=== PATIENT | female | born 1975 | race American Indian/Alaskan Native ===

== ENCOUNTER 2018-10-08 13:46 | Inpatient (IN) | payer MEDICARE ==
[2018-10-08] MEDS ORDERED: CARDIZEM IV ONE (14:07)
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
[2018-10-08] MEDS: CARDIZEM/D5W 100MG/100ML 100 MG/100 ML BAG IV SCH ×2 (14:30→21:38)
[2018-10-08 14:32] LABS: Basophils # (Auto) 0.1 K/mm3 (0.0-0.1); Basophils % (Auto) 1.4 % (0.0-1.8); Eosinophils # (Auto) 0.1 K/mm3 (0.0-0.4); Hematocrit 40.7 % (30.3-42.9); Hemoglobin 13.9 gm/dl (10.1-14.3); Lymphocytes # (Auto) 1.5 K/mm3 (1.2-5.4); Lymphocytes % (Auto) 22.9 % (13.4-35.0); Mean Corpuscular HGB Conc 34 % (30-34); Mean Corpuscular Volume 79 fl (79-97); Monocytes # (Auto) 0.5 K/mm3 (0.0-0.8); Monocytes % (Auto) 7.5 % (0.0-7.3); Platelet Count 300 K/mm3 (140-440); Red Blood Count 5.13 M/mm3 (3.65-5.03); Red Cell Distribution Width 13.8 % (13.2-15.2)
[2018-10-08 14:42] LABS: INR 1.03 (0.87-1.13)
[2018-10-08 14:43] LABS: Partial Thromboplastin Time 28.1 Sec. (24.2-36.6)
[2018-10-08 14:49] LABS: Creatine Kinase MB 2.9 ng/mL (0.0-4.0)
[2018-10-08 14:51] LABS: Alanine Aminotransferase 50 units/L (7-56); Albumin 4.4 g/dL (3.9-5); BUN/Creatinine Ratio 15; Blood Urea Nitrogen 6 mg/dL (7-17); Calcium 9.9 mg/dL (8.4-10.2); Hemolysis Index 20
[2018-10-08 14:55] LABS: Bilirubin,Direct < 0.2 mg/dL (0-0.2)
[2018-10-08] MEDS ORDERED: DECADRON IV ONE (15:14)
[2018-10-08] MEDS ORDERED: INDERAL IV ONE ×2 (15:14→16:00)
[2018-10-08 15:31] LABS: HCG Qualitative,Urine Negative (Negative)
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
[2018-10-08 15:34] LABS: Bilirubin,Urine NEG (Negative); Blood,Urine MOD (Negative); Color,Urine Straw (Yellow); Protein,Urine <15 mg/dL mg/dL (Negative); Urobilinogen,Urine < 2.0 mg/dL (<2.0); WBC,Urine < 1.0 /HPF (0.0-6.0)
[2018-10-08] MEDS: ASPIRIN PO SCH (15:45)
[2018-10-08] MEDS: PROPYLTHIOURACIL PO SCH (15:45)
[2018-10-08 15:50] LABS: Amphetamine Screen,Urine PRESUMPTIVE NEGATIVE; Benzodiazepines Screen,Urine PRESUMPTIVE NEGATIVE; Cannabinoid Screen,Urine PRESUMPTIVE NEGATIVE; Cocaine Screen,Urine PRESUMPTIVE NEGATIVE; Methadone Screen,Urine PRESUMPTIVE NEGATIVE; Opiate Screen,Urine PRESUMPTIVE NEGATIVE
[2018-10-08 16:12] LABS: Free T4 (Free Thyroxine) 5.16 ng/dL (0.76-1.46)
--- NOTE | 2018-10-08 16:37 | XRay Report ---
CHEST 1 VIEW INDICATION / CLINICAL INFORMATION: Chest Pain. COMPARISON: None available. FINDINGS: SUPPORT DEVICES: None. HEART / MEDIASTINUM: Heart is upper normal size for AP portable technique. LUNGS / PLEURA: No significant pulmonary or pleural abnormality. No pneumothorax. ADDITIONAL FINDINGS: No significant additional findings. IMPRESSION: 1. No acute findings. Signer Name: Amadeo Brooks MD Signed: 10/08/2018 4:32 PM Workstation Name: [id number]
--- NOTE | 2018-10-08 17:10 | Cat Scan Report ---
CTA CHEST WITH CONTRAST INDICATION / CLINICAL INFORMATION: MAIN: center/left chest pain. for days dyspnea. TECHNIQUE: Axial CT images were obtained through the chest after injection of IV contrast. 3 plane MIP and/or 3D reconstructions were produced. All CT scans at this location are performed using CT dose reduction f or ALARA by means of automated exposure control. COMPARISON: None available. FINDINGS: PULMONARY ARTERIES: No pulmonary emboli. THORACIC AORTA: No significant abnormality. HEART: Upper normal size. CORONARY ARTERIES: No significant calcification. MEDIASTINUM / RALPH: Mild soft tissue density in the anterior mediastinum represents residual thymus. PLEURA: No pleural effusion. No pneumothorax. LUNGS: No acute air space or interstitial disease. ADDITIONAL FINDINGS: None. UPPER ABDOMEN: Diffuse chunky calcifications throughout the pancreas characteristic of chronic calcif ic pancreatitis. Liver is diffusely hypodense characteristic of hepatic steatosis. SKELETAL STRUCTURES: No significant osseous abnormality. IMPRESSION: 1. No CT evidence for pulmonary embolism. 2. No acute pulmonary or pleural findings. 3. Hepatic steatosis and chronic calcific pancreatitis. Signer Name: Amadeo Brooks MD Signed: 10/08/2018 5:06 PM Workstation Name: [id number]
[2018-10-08] MEDS ORDERED: SODIUM CHLORIDE FLUSH SYRINGE 10 ML IV PRN (18:30)
[2018-10-08] MEDS ORDERED: ATIVAN ONE (18:32)
[2018-10-08] MEDS: LUGOL'S SOLUTION 5% PO SCH (22:48)
[2018-10-08] MEDS: SODIUM CHLORIDE FLUSH SYRINGE 10 ML IV SCH (22:49)
[2018-10-08] MEDS: TAPAZOLE PO SCH (22:49)
[2018-10-09] MEDS: PROPYLTHIOURACIL PO SCH ×2 (01:05→12:01)
[2018-10-09] MEDS: XANAX PO PRN ×2 (01:05→10:03)
[2018-10-09] MEDS: CARDIZEM/D5W 100MG/100ML 100 MG/100 ML BAG IV SCH (05:14)
[2018-10-09 05:30] LABS: Basophils % (Auto) 0.8 % (0.0-1.8); Hematocrit 38.7 % (30.3-42.9); Lymphocytes # (Auto) 0.5 K/mm3 (1.2-5.4); Lymphocytes % (Auto) 11.2 % (13.4-35.0); Mean Corpuscular HGB Conc 34 % (30-34); Mean Corpuscular Volume 81 fl (79-97); Monocytes # (Auto) 0.2 K/mm3 (0.0-0.8); Monocytes % (Auto) 4.9 % (0.0-7.3); Platelet Count 240 K/mm3 (140-440); Red Blood Count 4.79 M/mm3 (3.65-5.03); Red Cell Distribution Width 14.2 % (13.2-15.2)
[2018-10-09 05:59] LABS: Alanine Aminotransferase 46 units/L (7-56); Albumin 4.2 g/dL (3.9-5); BUN/Creatinine Ratio 22; Blood Urea Nitrogen 11 mg/dL (7-17); Calcium 10.2 mg/dL (8.4-10.2); Hemolysis Index 7
[2018-10-09] MEDS: LUGOL'S SOLUTION 5% PO SCH ×3 (07:33→21:13)
[2018-10-09] MEDS: TAPAZOLE PO SCH ×3 (07:33→21:08)
[2018-10-09] MEDS: ASPIRIN PO SCH (09:32)
[2018-10-09] MEDS: VITAMIN B-1 PO SCH (09:32)
[2018-10-09] MEDS: FOLVITE PO SCH (09:33)
[2018-10-09] MEDS: THERAGRAN Tab PO SCH (09:33)
[2018-10-09] MEDS: SODIUM CHLORIDE FLUSH SYRINGE 10 ML IV SCH ×2 (09:38→21:09)
--- NOTE | 2018-10-09 10:27 | Consultation ---
History of Present Illness Consult date: 10/09/18 Consult reason: atrial fibrillation History of present illness: 4-1 year old female presenting with history of weight loss heat intolerance, palpitation, shortness of breath, and dyspnea on exertion. Patient was found in the emergency room to have new onset Atrial fibrillation with a rapid ventricular response as well as evidence of new onset thyrotoxicosis. 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) Social history: single, alcohol abuse Family history: no significant family history (Reviewed) Medications and Allergies Allergies Allergy/AdvReac Type Severity Reaction Status Date / Time No Known Allergies Allergy Unverified 10/08/18 18:49 Active Meds: Active Medications Alprazolam (Xanax) 0.25 mg PO Q8H PRN PRN Reason: Anxiety Last Admin: 10/09/18 10:03 Dose: 0.25 mg Documented by: Aspirin (Aspirin) 325 mg PO QDAY [facility] Last Admin: 10/09/18 09:32 Dose: 325 mg Documented by: Dabigatran (Pradaxa) 150 mg PO BID [facility]; Protocol Diltiazem HCl (Cardizem) 60 mg PO Q6HR [facility] Folic Acid (Folvite) 1 mg PO QDAY [facility] Last Admin: 10/09/18 09:33 Dose: 1 mg Documented by: Iodine/Potassium Iodide (Lugol's Solution 5%) 1 ml PO Q8HR [facility] Last Admin: 10/09/18 07:33 Dose: 1 ml Documented by: Lorazepam (Ativan) 2 mg IV Q1HR PRN PRN Reason: CIWA-Ar 8-15 Methimazole (Tapazole) 5 mg PO Q8HR [facility] Last Admin: 10/09/18 07:33 Dose: 5 mg Documented by: Multivitamins (Theragran Tab) 1 each PO QDAY [facility] Last Admin: 10/09/18 09:33 Dose: 1 each Documented by: Propylthiouracil (Propylthiouracil) 100 mg PO Q8H [facility] Last Admin: 10/09/18 01:05 Dose: 100 mg Documented by: Sodium Chloride (Sodium Chloride Flush Syringe 10 Ml) 10 ml IV BID [facility] Last Admin: 10/09/18 09:38 Dose: 10 ml Documented by: Sodium Chloride (Sodium Chloride Flush Syringe 10 Ml) 10 ml IV PRN PRN PRN Reason: LINE FLUSH Thiamine HCl (Vitamin B-1) 100 mg PO QDAY [facility] Last Admin: 10/09/18 09:32 Dose: 100 mg Documented by: Review of Systems All systems: negative Cardiovascular: palpitations, shortness of breath, dyspnea on exertion Psychiatric: anxiety Physical Examination Vital Signs Pulse BP 181 H 132/69 10/08/18 14:15 10/08/18 14:15 General appearance: no acute distress, well-nourished HEENT: Positive: PERRL, Mucus Membranes Moist Neck: Positive: neck supple, trachea midline Cardiac: Positive: irregularly irregular, S1/S2. Negative: Audible Murmur Lungs: Positive: clear to auscultation, Normal Breath Sounds Neuro: Positive: Grossly Intact Abdomen: Positive: Soft, Active Bowel Sounds. Negative: Tender, Distended Female genitourinary: deferred Skin: Positive: Clear Incision: Cardiac Cath Site Musculoskeletal: No Pain, Normal Range of Motion Extremities: Present: normal. Absent: edema Results 10/09/18 04:34 10/09/18 04:34 Cardiac Enzymes 10/08/18 10/09/18 Range/Units 14:20 04:34 AST 65 H 50 H (5-40) units/L CK-MB (CK-2) 2.9 (0.0-4.0) ng/mL Coagulation 10/08/18 Range/Units 14:20 PT 13.2 (12.2-14.9) Sec. INR 1.03 (0.87-1.13) APTT 28.1 (24.2-36.6) Sec. CBC 10/08/18 10/09/18 Range/Units 14:20 04:34 WBC 6.4 4.5 (4.5-11.0) K/mm3 RBC 5.13 H 4.79 (3.65-5.03) M/mm3 Hgb 13.9 13.0 (10.1-14.3) gm/dl Hct 40.7 38.7 (30.3-42.9) % Plt Count 300 240 (140-440) K/mm3 Lymph # 1.5 0.5 L (1.2-5.4) K/mm3 [place] # 0.5 0.2 (0.0-0.8) K/mm3 Eos # 0.1 0.0 (0.0-0.4) K/mm3 Baso # 0.1 0.0 (0.0-0.1) K/mm3 Comprehensive Metabolic Panel 10/08/18 10/09/18 Range/Units 14:20 04:34 Sodium 136 L 139 (137-145) mmol/L Potassium 3.5 L 3.9 (3.6-5.0) mmol/L Chloride 96.4 L 101.6 (98-107) mmol/L Carbon Dioxide 22 24 (22-30) mmol/L BUN 6 L 11 (7-17) mg/dL Creatinine 0.4 L 0.5 L (0.7-1.2) mg/dL Glucose 122 H 149 H (65-100) mg/dL Calcium 9.9 10.2 (8.4-10.2) mg/dL Direct Bilirubin < 0.2 (0-0.2) mg/dL AST 65 H 50 H (5-40) units/L ALT 50 46 (7-56) units/L Alkaline Phosphatase 124 113 (35-129) units/L Total Protein 8.2 7.6 (6.3-8.2) g/dL Albumin 4.4 4.2 (3.9-5) g/dL - EKG Interpretation EKG shows: atrial fibrillation EKG interpretations - Telemetry EKG Rhythm: Atrial Fibrillation Assessment and Plan 1. Thyrotoxicosis without thyroid storm 2. New onset atrial fibrillation with a rapid ventricular response 3. Anxiety disorder probably related to high hyper thyroidism Plan Patient is currently on intravenous Cardizem drip ventricular response to atrial fibrillation controlled we will switch this to oral Cardizem. Patient will be started on anticoagulation. Echocardiogram will be done to assess global and regional function of the left ventricle
[2018-10-09] MEDS: ATIVAN IV PRN ×3 (10:51→23:03)
[2018-10-09] MEDS: CARDIZEM PO SCH ×3 (10:54→22:42)
[2018-10-09] MEDS: PRADAXA PO SCH ×2 (11:38→21:08)
--- NOTE | 2018-10-09 11:51 | Progress Note ---
Assessment and Plan Assessment and plan: Hyperthyroidism. Thyroid function studies consistent with hyperthyroidism. Check urine test. Continue Tapazole. Check RAIU for confirmation. Thyrotoxicosis. As above. Atrial fibrillation with RVR. Etiology secondary to above. Continue Cardizem and propranolol per cardiology. Cardiology following. Follow-up echocardiogram. Anxiety disorder. Etiology probably secondary to above. Continue to treat underlying medical causes. History Interval history: 43 year old female presenting with history of weight loss heat intolerance, palpitation, shortness of breath, and dyspnea on exertion. Patient was found in the emergency room to have new onset Atrial fibrillation with a rapid ventricular response as well as evidence of new onset thyrotoxicosis. Hospitalist Physical - Constitutional Vitals: Temp Pulse Resp BP Pulse Ox 97.4 F L 132 H 17 138/78 99 10/09/18 07:57 10/09/18 10:54 10/09/18 10:50 10/09/18 10:54 10/09/18 10:50 General appearance: Present: no acute distress, well-nourished - EENT Eyes: Present: PERRL, EOM intact ENT: hearing intact, clear oral mucosa, dentition normal - Neck Neck: Present: supple, normal ROM - Respiratory Respiratory effort: normal Respiratory: bilateral: CTA - Cardiovascular Rhythm: regular Heart Sounds: Present: S1 & S2. Absent: gallop, rub - Extremities Extremities: no ischemia, No edema, Full ROM - Abdominal General gastrointestinal: soft, non-tender, non-distended, normal bowel sounds - Integumentary Integumentary: Present: clear, warm, dry - Neurologic Neurologic: CNII-XII intact, moves all extremities Results - Labs CBC & Chem 7: 10/09/18 04:34 10/09/18 04:34 Labs: Laboratory Last Values WBC 4.5 K/mm3 (4.5-11.0) 10/09/18 04:34 RBC 4.79 M/mm3 (3.65-5.03) 10/09/18 04:34 Hgb 13.0 gm/dl (10.1-14.3) 10/09/18 04:34 Hct 38.7 % (30.3-42.9) 10/09/18 04:34 MCV 81 fl (79-97) 10/09/18 04:34 MCH 27 pg (28-32) L 10/09/18 04:34 MCHC 34 % (30-34) 10/09/18 04:34 RDW 14.2 % (13.2-15.2) 10/09/18 04:34 Plt Count 240 K/mm3 (140-440) 10/09/18 04:34 Lymph % (Auto) 11.2 % (13.4-35.0) L 10/09/18 04:34 [place] % (Auto) 4.9 % (0.0-7.3) 10/09/18 04:34 Eos % (Auto) 0.0 % (0.0-4.3) 10/09/18 04:34 Baso % (Auto) 0.8 % (0.0-1.8) 10/09/18 04:34 Lymph # 0.5 K/mm3 (1.2-5.4) L 10/09/18 04:34 [place] # 0.2 K/mm3 (0.0-0.8) 10/09/18 04:34 Eos # 0.0 K/mm3 (0.0-0.4) 10/09/18 04:34 Baso # 0.0 K/mm3 (0.0-0.1) 10/09/18 04:34 Seg Neutrophils % 83.1 % (40.0-70.0) H 10/09/18 04:34 Seg Neutrophils # 3.7 K/mm3 (1.8-7.7) 10/09/18 04:34 PT 13.2 Sec. (12.2-14.9) 10/08/18 14:20 INR 1.03 (0.87-1.13) 10/08/18 14:20 APTT 28.1 Sec. (24.2-36.6) 10/08/18 14:20 1075.24 ng/mlDDU (0-234) H 10/08/18 14:20 Sodium 139 mmol/L (137-145) 10/09/18 04:34 Potassium 3.9 mmol/L (3.6-5.0) 10/09/18 04:34 Chloride 101.6 mmol/L (98-107) 10/09/18 04:34 Carbon Dioxide 24 mmol/L (22-30) 10/09/18 04:34 17 mmol/L 10/09/18 04:34 BUN 11 mg/dL (7-17) 10/09/18 04:34 0.5 mg/dL (0.7-1.2) L 10/09/18 04:34 Estimated GFR > 60 ml/min 10/09/18 04:34 22 % 10/09/18 04:34 Glucose 149 mg/dL (65-100) H 10/09/18 04:34 Calcium 10.2 mg/dL (8.4-10.2) 10/09/18 04:34 Magnesium 2.20 mg/dL (1.7-2.3) 10/08/18 15:30 0.60 mg/dL (0.1-1.2) 10/09/18 04:34 < 0.2 mg/dL (0-0.2) 10/08/18 14:20 AST 50 units/L (5-40) H 10/09/18 04:34 ALT 46 units/L (7-56) 10/09/18 04:34 113 units/L (35-129) 10/09/18 04:34 193 units/L (30-135) H 10/08/18 14:20 CK-MB (CK-2) 2.9 ng/mL (0.0-4.0) 10/08/18 14:20 CK-MB (CK-2) Rel Index 1.5 (0-4) 10/08/18 14:20 < 0.010 ng/mL (0.00-0.029) 10/08/18 19:35 NT-Pro-B Natriuret Pep 75.99 pg/mL (0-450) 10/08/18 14:20 7.6 g/dL (6.3-8.2) 10/09/18 04:34 4.2 g/dL (3.9-5) 10/09/18 04:34 1.2 % 10/09/18 04:34 TSH < 0.005 mlU/mL (0.270-4.200) L 10/08/18 15:30 Free T4 5.16 ng/dL (0.76-1.46) H 10/08/18 15:30 Straw (Yellow) 10/08/18 15:15 Clear (Clear) 10/08/18 15:15 6.0 (5.0-7.0) 10/08/18 15:15 Ur Specific [place] 1.003 (1.003-1.030) 10/08/18 15:15 <15 mg/dl mg/dL (Negative) 10/08/18 15:15 Neg mg/dL (Negative) 10/08/18 15:15 Neg mg/dL (Negative) 10/08/18 15:15 Mod (Negative) 10/08/18 15:15 Neg (Negative) 10/08/18 15:15 Ur Reducing Substances Not Reportable 10/08/18 15:15 Neg (Negative) 10/08/18 15:15 Not Reportable 10/08/18 15:15 < 2.0 mg/dL (<2.0) 10/08/18 15:15 Ur Leukocyte Esterase Neg (Negative) 10/08/18 15:15 < 1.0 /HPF (0.0-6.0) 10/08/18 15:15 3.0 /HPF (0.0-6.0) 10/08/18 15:15 U Epithel Cells (Auto) 1.0 /HPF (0-13.0) 10/08/18 15:15 Urine HCG, Qual Negative (Negative) 10/08/18 15:15 Presumptive negative 10/08/18 15:15 Presumptive negative 10/08/18 15:15 Ur Barbiturates Screen Presumptive negative 10/08/18 15:15 Ur Phencyclidine Scrn Presumptive negative 10/08/18 15:15 Ur Amphetamines Screen Presumptive negative 10/08/18 15:15 U Benzodiazepines Scrn Presumptive negative 10/08/18 15:15 [place] 0.4 mmol/L (0.0-1.2) 10/08/18 15:15 Presumptive negative 10/08/18 15:15 U Marijuana (THC) Screen Presumptive negative 10/08/18 15:15 Disclamer 10/08/18 15:15 Blood Type O POSITIVE 10/08/18 14:30 Antibody Screen Negative 10/08/18 14:30 Active Medications - Current Medications Current Medications: Generic Name Dose Route Start Last Admin Trade Name Freq PRN Reason Stop Dose Admin Alprazolam 0.25 mg 10/08/18 22:42 10/09/18 10:03 Xanax PO 0.25 mg Q8H PRN Administration Anxiety Aspirin 325 mg 10/08/18 16:00 10/09/18 09:32 Aspirin PO 325 mg QDAY ELVIRA Administration Dabigatran 150 mg 10/09/18 12:00 10/09/18 11:38 Pradaxa PO 150 mg BID ELVIRA Administration Protocol Diltiazem HCl 60 mg 10/09/18 11:00 10/09/18 10:54 Cardizem PO 60 mg Q6H ELVIRA Administration Folic Acid 1 mg 10/09/18 10:00 10/09/18 09:33 Folvite PO 1 mg QDAY ELVIRA Administration Iodine/Potassium Iodide 1 ml 10/08/18 22:00 10/09/18 07:33 Lugol's Solution 5% PO 1 ml Q8HR ELVIRA Administration Lorazepam 2 mg 10/09/18 06:37 10/09/18 10:51 Ativan IV 2 mg Q1HR PRN Administration CIWA-Ar 8-15 Methimazole 5 mg 10/08/18 22:00 10/09/18 07:33 Tapazole PO 5 mg Q8HR ELVIRA Administration Multivitamins 1 each 10/09/18 10:00 10/09/18 09:33 Theragran Tab PO 1 each QDAY ELVIRA Administration Propylthiouracil 100 mg 10/08/18 16:00 10/09/18 01:05 Propylthiouracil PO 100 mg Q8H ELVIRA Administration Sodium Chloride 10 ml 10/08/18 22:00 10/09/18 09:38 Sodium Chloride Flush Syringe 10 Ml IV 10 ml BID ELVIRA Administration Sodium Chloride 10 ml 10/08/18 18:30 Sodium Chloride Flush Syringe 10 Ml IV PRN PRN LINE FLUSH Thiamine HCl 100 mg 10/09/18 10:00 10/09/18 09:32 Vitamin B-1 PO 100 mg QDAY ELVIRA Administration
[2018-10-10] MEDS: CARDIZEM PO SCH ×4 (04:20→22:21)
[2018-10-10] MEDS: LUGOL'S SOLUTION 5% PO SCH ×3 (05:39→21:11)
[2018-10-10] MEDS: TAPAZOLE PO SCH ×3 (05:39→21:10)
[2018-10-10] MEDS: PRADAXA PO SCH ×2 (10:00→21:11)
[2018-10-10] MEDS: SODIUM CHLORIDE FLUSH SYRINGE 10 ML IV SCH ×2 (10:00→21:15)
[2018-10-10] MEDS: VITAMIN B-1 PO SCH (10:00)
[2018-10-10] MEDS: FOLVITE PO SCH (10:00)
[2018-10-10] MEDS: ASPIRIN PO SCH (10:00)
[2018-10-10] MEDS: THERAGRAN Tab PO SCH (10:00)
[2018-10-10] MEDS: ATIVAN IV PRN (10:01)
--- NOTE | 2018-10-10 11:33 | Consultation ---
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) Social history: single, alcohol abuse Family history: no significant family history (Reviewed) Medications and Allergies Allergies Allergy/AdvReac Type Severity Reaction Status Date / Time No Known Allergies Allergy Unverified 10/08/18 18:49 Home Medications Medication Instructions Recorded Confirmed Last Taken Type [place] 500 mg PO BID 10/09/18 10/09/18 10/06/18 History 500mg Plaquenil 200 mg PO BID 10/09/18 10/09/18 Unknown History Wellbutrin 75 mg PO BID 10/09/18 10/09/18 10/08/18 09:00 History traZODone 100 mg PO HS 10/09/18 10/09/18 Unknown History Active Meds: Active Medications Alprazolam (Xanax) 0.25 mg PO Q8H PRN PRN Reason: Anxiety Last Admin: 10/09/18 10:03 Dose: 0.25 mg Documented by: Aspirin (Aspirin) 325 mg PO QDAY [facility] Last Admin: 10/10/18 10:00 Dose: 325 mg Documented by: Dabigatran (Pradaxa) 150 mg PO BID [facility]; Protocol Last Admin: 10/10/18 10:00 Dose: 150 mg Documented by: Diltiazem HCl (Cardizem) 60 mg PO Q6H [facility] Last Admin: 10/10/18 10:05 Dose: 60 mg Documented by: Folic Acid (Folvite) 1 mg PO QDAY [facility] Last Admin: 10/10/18 10:00 Dose: 1 mg Documented by: Iodine/Potassium Iodide (Lugol's Solution 5%) 1 ml PO Q8HR [facility] Last Admin: 10/10/18 05:39 Dose: 1 ml Documented by: Lorazepam (Ativan) 2 mg IV Q1HR PRN PRN Reason: CIWA-Ar 8-15 Last Admin: 10/10/18 10:01 Dose: 2 mg Documented by: Methimazole (Tapazole) 5 mg PO Q8HR [facility] Last Admin: 10/10/18 05:39 Dose: 5 mg Documented by: Multivitamins (Theragran Tab) 1 each PO QDAY [facility] Last Admin: 10/10/18 10:00 Dose: 1 each Documented by: Sodium Chloride (Sodium Chloride Flush Syringe 10 Ml) 10 ml IV BID [facility] Last Admin: 10/10/18 10:00 Dose: 10 ml Documented by: Sodium Chloride (Sodium Chloride Flush Syringe 10 Ml) 10 ml IV PRN PRN PRN Reason: LINE FLUSH Thiamine HCl (Vitamin B-1) 100 mg PO QDAY [facility] Last Admin: 10/10/18 10:00 Dose: 100 mg Documented by: Physical Examination Vital signs: Vital Signs Pulse BP 181 H 132/69 10/08/18 14:15 10/08/18 14:15 Results - Laboratory Findings CBC and BMP: 10/09/18 04:34 10/09/18 04:34 PT/INR, D-dimer PT 13.2 Sec. (12.2-14.9) 10/08/18 14:20 INR 1.03 (0.87-1.13) 10/08/18 14:20 1075.24 ng/mlDDU (0-234) H 10/08/18 14:20 Abnormal lab findings: Abnormal Labs 10/08/18 10/08/18 10/08/18 14:20 14:20 14:20 RBC 5.13 H MCH 27 L Lymph % (Auto) [place] % (Auto) 7.5 H Lymph # Seg Neutrophils % D-Dimer 1075.24 H Sodium 136 L Potassium 3.5 L Chloride 96.4 L BUN 6 L Creatinine 0.4 L Glucose 122 H AST 65 H Total Creatine Kinase 193 H TSH Free T4 10/08/18 10/08/18 10/09/18 14:20 15:30 04:34 RBC MCH 27 L Lymph % (Auto) 11.2 L [place] % (Auto) Lymph # 0.5 L Seg Neutrophils % 83.1 H D-Dimer Sodium Potassium Chloride BUN Creatinine Glucose AST Total Creatine Kinase TSH < 0.005 L < 0.005 L Free T4 5.16 H 10/09/18 04:34 RBC MCH Lymph % (Auto) [place] % (Auto) Lymph # Seg Neutrophils % D-Dimer Sodium Potassium Chloride BUN Creatinine 0.5 L Glucose 149 H AST 50 H Total Creatine Kinase TSH Free T4
--- NOTE | 2018-10-10 11:46 | Progress Note ---
Assessment and Plan Assessment and plan: Hyperthyroidism. Thyroid function studies consistent with hyperthyroidism. Continue Tapazole. Check RAIU for further evaluation. Thyrotoxicosis. As above. Atrial fibrillation with RVR. Etiology secondary to above. The patient has been weaned off Cardizem drip. Continue Cardizem 60 mg every 8 hours. Cardiology following. Follow-up echocardiogram. Cardiology started pradaxa Anxiety disorder. Etiology probably secondary to above. Continue to treat underlying medical causes. Disposition. Pt. will be trasferred to the floor History Interval history: 43 year old female presenting with history of weight loss heat intolerance, palpitation, shortness of breath, and dyspnea on exertion. Patient was found in the emergency room to have new onset Atrial fibrillation with a rapid ventricular response as well as evidence of new onset thyrotoxicosis. Hospitalist Physical - Constitutional Vitals: Temp Pulse Resp BP Pulse Ox 96.9 F L 100 H 28 H 124/73 99 10/10/18 08:00 10/10/18 11:00 10/10/18 11:00 10/10/18 11:00 10/10/18 11:00 General appearance: Present: no acute distress, well-nourished - EENT Eyes: Present: PERRL, EOM intact ENT: hearing intact, clear oral mucosa, dentition normal - Neck Neck: Present: supple, normal ROM - Respiratory Respiratory effort: normal Respiratory: bilateral: CTA - Cardiovascular Rhythm: regular Heart Sounds: Present: S1 & S2. Absent: gallop, rub - Extremities Extremities: no ischemia, No edema, Full ROM - Abdominal General gastrointestinal: soft, non-tender, non-distended, normal bowel sounds - Integumentary Integumentary: Present: clear, warm, dry - Neurologic Neurologic: CNII-XII intact, moves all extremities Results - Labs CBC & Chem 7: 10/09/18 04:34 10/09/18 04:34 Labs: Laboratory Last Values WBC 4.5 K/mm3 (4.5-11.0) 10/09/18 04:34 RBC 4.79 M/mm3 (3.65-5.03) 10/09/18 04:34 Hgb 13.0 gm/dl (10.1-14.3) 10/09/18 04:34 Hct 38.7 % (30.3-42.9) 10/09/18 04:34 MCV 81 fl (79-97) 10/09/18 04:34 MCH 27 pg (28-32) L 10/09/18 04:34 MCHC 34 % (30-34) 10/09/18 04:34 RDW 14.2 % (13.2-15.2) 10/09/18 04:34 Plt Count 240 K/mm3 (140-440) 10/09/18 04:34 Lymph % (Auto) 11.2 % (13.4-35.0) L 10/09/18 04:34 [place] % (Auto) 4.9 % (0.0-7.3) 10/09/18 04:34 Eos % (Auto) 0.0 % (0.0-4.3) 10/09/18 04:34 Baso % (Auto) 0.8 % (0.0-1.8) 10/09/18 04:34 Lymph # 0.5 K/mm3 (1.2-5.4) L 10/09/18 04:34 [place] # 0.2 K/mm3 (0.0-0.8) 10/09/18 04:34 Eos # 0.0 K/mm3 (0.0-0.4) 10/09/18 04:34 Baso # 0.0 K/mm3 (0.0-0.1) 10/09/18 04:34 Seg Neutrophils % 83.1 % (40.0-70.0) H 10/09/18 04:34 Seg Neutrophils # 3.7 K/mm3 (1.8-7.7) 10/09/18 04:34 PT 13.2 Sec. (12.2-14.9) 10/08/18 14:20 INR 1.03 (0.87-1.13) 10/08/18 14:20 APTT 28.1 Sec. (24.2-36.6) 10/08/18 14:20 1075.24 ng/mlDDU (0-234) H 10/08/18 14:20 Sodium 139 mmol/L (137-145) 10/09/18 04:34 Potassium 3.9 mmol/L (3.6-5.0) 10/09/18 04:34 Chloride 101.6 mmol/L (98-107) 10/09/18 04:34 Carbon Dioxide 24 mmol/L (22-30) 10/09/18 04:34 17 mmol/L 10/09/18 04:34 BUN 11 mg/dL (7-17) 10/09/18 04:34 0.5 mg/dL (0.7-1.2) L 10/09/18 04:34 Estimated GFR > 60 ml/min 10/09/18 04:34 22 % 10/09/18 04:34 Glucose 149 mg/dL (65-100) H 10/09/18 04:34 Calcium 10.2 mg/dL (8.4-10.2) 10/09/18 04:34 Magnesium 2.20 mg/dL (1.7-2.3) 10/08/18 15:30 0.60 mg/dL (0.1-1.2) 10/09/18 04:34 < 0.2 mg/dL (0-0.2) 10/08/18 14:20 AST 50 units/L (5-40) H 10/09/18 04:34 ALT 46 units/L (7-56) 10/09/18 04:34 113 units/L (35-129) 10/09/18 04:34 193 units/L (30-135) H 10/08/18 14:20 CK-MB (CK-2) 2.9 ng/mL (0.0-4.0) 10/08/18 14:20 CK-MB (CK-2) Rel Index 1.5 (0-4) 10/08/18 14:20 < 0.010 ng/mL (0.00-0.029) 10/08/18 19:35 NT-Pro-B Natriuret Pep 75.99 pg/mL (0-450) 10/08/18 14:20 7.6 g/dL (6.3-8.2) 10/09/18 04:34 4.2 g/dL (3.9-5) 10/09/18 04:34 1.2 % 10/09/18 04:34 TSH < 0.005 mlU/mL (0.270-4.200) L 10/08/18 15:30 Free T4 5.16 ng/dL (0.76-1.46) H 10/08/18 15:30 HCG, Qual Negative (Negative) 10/09/18 13:40 Straw (Yellow) 10/08/18 15:15 Clear (Clear) 10/08/18 15:15 6.0 (5.0-7.0) 10/08/18 15:15 Ur Specific [place] 1.003 (1.003-1.030) 10/08/18 15:15 <15 mg/dl mg/dL (Negative) 10/08/18 15:15 Neg mg/dL (Negative) 10/08/18 15:15 Neg mg/dL (Negative) 10/08/18 15:15 Mod (Negative) 10/08/18 15:15 Neg (Negative) 10/08/18 15:15 Ur Reducing Substances Not Reportable 10/08/18 15:15 Neg (Negative) 10/08/18 15:15 Not Reportable 10/08/18 15:15 < 2.0 mg/dL (<2.0) 10/08/18 15:15 Ur Leukocyte Esterase Neg (Negative) 10/08/18 15:15 < 1.0 /HPF (0.0-6.0) 10/08/18 15:15 3.0 /HPF (0.0-6.0) 10/08/18 15:15 U Epithel Cells (Auto) 1.0 /HPF (0-13.0) 10/08/18 15:15 Urine HCG, Qual Negative (Negative) 10/08/18 15:15 Presumptive negative 10/08/18 15:15 Presumptive negative 10/08/18 15:15 Ur Barbiturates Screen Presumptive negative 10/08/18 15:15 Ur Phencyclidine Scrn Presumptive negative 10/08/18 15:15 Ur Amphetamines Screen Presumptive negative 10/08/18 15:15 U Benzodiazepines Scrn Presumptive negative 10/08/18 15:15 [place] 0.4 mmol/L (0.0-1.2) 10/08/18 15:15 Presumptive negative 10/08/18 15:15 U Marijuana (THC) Screen Presumptive negative 10/08/18 15:15 Disclamer 10/08/18 15:15 Blood Type O POSITIVE 10/08/18 14:30 Antibody Screen Negative 10/08/18 14:30 Active Medications - Current Medications Current Medications: Generic Name Dose Route Start Last Admin Trade Name Freq PRN Reason Stop Dose Admin Alprazolam 0.25 mg 10/08/18 22:42 10/09/18 10:03 Xanax PO 0.25 mg Q8H PRN Administration Anxiety Aspirin 325 mg 10/08/18 16:00 10/10/18 10:00 Aspirin PO 325 mg QDAY ELVIRA Administration Dabigatran 150 mg 10/09/18 12:00 10/10/18 10:00 Pradaxa PO 150 mg BID ELVIRA Administration Protocol Diltiazem HCl 60 mg 10/09/18 11:00 10/10/18 10:05 Cardizem PO 60 mg Q6H ELVIRA Administration Folic Acid 1 mg 10/09/18 10:00 10/10/18 10:00 Folvite PO 1 mg QDAY ELVIRA Administration Iodine/Potassium Iodide 1 ml 10/08/18 22:00 10/10/18 05:39 Lugol's Solution 5% PO 1 ml Q8HR ELVIRA Administration Lorazepam 2 mg 10/09/18 06:37 10/10/18 10:01 Ativan IV 2 mg Q1HR PRN Administration CIWA-Ar 8-15 Methimazole 5 mg 10/08/18 22:00 10/10/18 05:39 Tapazole PO 5 mg Q8HR ELVIRA Administration Multivitamins 1 each 10/09/18 10:00 10/10/18 10:00 Theragran Tab PO 1 each QDAY ELVIRA Administration Sodium Chloride 10 ml 10/08/18 22:00 10/10/18 10:00 Sodium Chloride Flush Syringe 10 Ml IV 10 ml BID ELVIRA Administration Sodium Chloride 10 ml 10/08/18 18:30 Sodium Chloride Flush Syringe 10 Ml IV PRN PRN LINE FLUSH Thiamine HCl 100 mg 10/09/18 10:00 10/10/18 10:00 Vitamin B-1 PO 100 mg QDAY ELVIRA Administration
[2018-10-10] MEDS ORDERED: LOPRESSOR IV PRN (12:02)
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
[2018-10-10] MEDS: XANAX PO PRN ×2 (12:27→19:47)
--- NOTE | 2018-10-10 15:10 | Progress Note ---
Assessment and Plan Thyrotoxicosis New onset atrial fibrillation initiated on Pradaxa on Diltiazem for suppression Anxiety disorder Normal LVEF 60-65% by echocardiogram done this admission. Plan: In addition to Diltiazem we will add propranolol for optimal rate control. Subjective Date of service: 10/10/18 Interval history: Patient is resting in bed comfortably. Afib with a well controlled ventricular rate on telemetry. Objective Vital Signs Temp Pulse Pulse Resp BP Pulse Ox 10/10/18 13:00 100 H 26 H 123/81 99 10/10/18 12:30 87 24 120/72 99 10/10/18 12:00 138 H 16 107/68 99 10/10/18 11:30 109 H 25 H 107/68 99 10/10/18 11:00 100 H 28 H 124/73 99 10/10/18 10:30 107 H 26 H 128/87 100 10/10/18 10:05 120 H 125/87 10/10/18 10:00 106 H 40 H 125/87 99 10/10/18 09:30 114 H 27 H 131/80 99 10/10/18 09:00 124 H 21 132/81 100 10/10/18 08:30 124 H 19 127/87 99 10/10/18 08:00 96.9 F L 95 H 98 H 19 127/87 100 10/10/18 07:30 102 H 24 124/78 98 10/10/18 07:00 92 H 22 117/57 100 10/10/18 06:30 90 27 H 119/70 99 10/10/18 06:00 97 H 27 H 124/70 99 10/10/18 05:30 94 H 22 120/69 99 10/10/18 05:00 94 H 23 130/77 99 10/10/18 04:30 93 H 33 H 124/84 100 10/10/18 04:20 96 H 131/75 10/10/18 04:00 98.8 F 100 H 100 H 48 H 131/75 98 10/10/18 03:30 98 H 25 H 134/80 98 10/10/18 03:00 97 H 24 127/70 99 10/10/18 02:30 110 H 23 121/65 100 10/10/18 02:00 104 H 26 H 124/60 99 10/10/18 01:30 124 H 20 132/91 99 10/10/18 01:00 106 H 29 H 122/64 100 10/10/18 00:30 99 H 26 H 128/81 99 10/10/18 00:08 95 H 32 H 135/89 100 10/10/18 00:00 98.5 F 100 H 100 H 35 H 135/89 100 10/09/18 23:30 108 H 42 H 137/87 100 10/09/18 23:00 101 H 26 H 136/79 98 10/09/18 22:42 111 H 129/80 10/09/18 22:30 113 H 14 105/81 99 10/09/18 22:00 116 H 32 H 105/81 100 10/09/18 21:30 131 H 36 H 115/85 100 10/09/18 21:00 114 H 31 H 127/87 100 10/09/18 20:30 131 H 21 131/105 10/09/18 20:00 98.3 F 116 H 116 H 17 132/81 10/09/18 19:30 103 H 28 H 136/75 10/09/18 19:00 107 H 34 H 132/73 10/09/18 18:30 120 H 17 137/75 100 10/09/18 18:10 111 H 32 H 130/70 10/09/18 18:00 107 H 29 H 130/70 100 10/09/18 17:50 148 H 33 H 137/70 10/09/18 17:40 103 H 36 H 137/70 100 10/09/18 17:30 111 H 27 H 137/70 100 10/09/18 17:20 122 H 17 133/78 100 10/09/18 17:10 117 H 24 133/78 100 10/09/18 17:00 119 H 24 133/78 100 10/09/18 16:50 116 H 21 149/79 100 10/09/18 16:40 127 H 14 149/79 98 10/09/18 16:30 138 H 14 149/79 10/09/18 16:28 156 H 131/81 10/09/18 16:20 118 H 19 131/81 100 10/09/18 16:10 117 H 33 H 131/81 100 10/09/18 16:00 124 H 20 152/71 10/09/18 15:55 98.6 F 10/09/18 15:50 131 H 23 152/71 10/09/18 15:40 168 H 32 H 152/71 10/09/18 15:30 154 H 27 H 131/76 100 10/09/18 15:20 113 H 26 H 131/76 100 10/09/18 15:10 113 H 27 H 131/76 100 - Physical Examination General: No Apparent Distress HEENT: Positive: PERRL Neck: Positive: trachea midline Cardiac: Positive: irregularly irregular Lungs: Positive: Decreased Breath Sounds Neuro: Positive: Grossly Intact Abdomen: Positive: Active Bowel Sounds Extremities: Absent: edema
[2018-10-10] MEDS: INDERAL PO SCH (18:40)
[2018-10-10] MEDS: REMERON PO SCH (21:10)
[2018-10-11] MEDS: INDERAL PO SCH ×4 (00:55→18:51)
[2018-10-11] MEDS ORDERED: TYLENOL PO PRN (02:35)
[2018-10-11] MEDS ORDERED: TYLENOL ONE (03:14)
[2018-10-11] MEDS: CARDIZEM PO SCH ×4 (05:10→21:53)
[2018-10-11] MEDS: LUGOL'S SOLUTION 5% PO SCH ×3 (05:59→21:53)
--- NOTE | 2018-10-11 09:10 | Progress Note ---
Assessment and Plan Thyrotoxicosis New onset atrial fibrillation initiated on Pradaxa on Diltiazem and Propranolol for rate control Anxiety disorder Normal LVEF 60-65% by echocardiogram done this admission. Continue medical therapy for atrial fibrillation that persists. Subjective Date of service: 10/11/18 Interval history: Patient is resting in bed comfortably. Afib with a well controlled ventricular rate on telemetry. Objective Vital Signs Temp Pulse Pulse Resp BP BP Pulse Ox 10/11/18 08:27 97.9 F 84 18 94/59 100 10/11/18 06:00 110/66 10/11/18 05:05 100/60 10/11/18 04:00 98.2 F 89 18 89/49 99 10/11/18 00:00 98.1 F 88 18 104/58 99 10/10/18 22:21 77 10/10/18 20:45 96 H 10/10/18 20:37 96 H 10/10/18 19:38 97.9 F 107 H 18 111/60 99 10/10/18 15:33 97.9 F 105 H 18 128/76 96 10/10/18 13:30 123/81 99 10/10/18 13:00 100 H 26 H 123/81 99 10/10/18 12:30 87 24 120/72 99 10/10/18 12:00 138 H 16 107/68 99 10/10/18 11:30 109 H 25 H 107/68 99 10/10/18 11:00 100 H 28 H 124/73 99 10/10/18 10:30 107 H 26 H 128/87 100 10/10/18 10:05 120 H 125/87 10/10/18 10:00 106 H 40 H 125/87 99 10/10/18 09:30 114 H 27 H 131/80 99 - Physical Examination General: No Apparent Distress HEENT: Positive: PERRL Neck: Positive: trachea midline Cardiac: Positive: irregularly irregular Lungs: Positive: Decreased Breath Sounds Neuro: Positive: Grossly Intact Abdomen: Positive: Active Bowel Sounds Extremities: Absent: edema
[2018-10-11] MEDS: THERAGRAN Tab PO SCH (09:11)
[2018-10-11] MEDS: PRADAXA PO SCH ×2 (09:11→21:53)
[2018-10-11] MEDS: ASPIRIN PO SCH (09:11)
[2018-10-11] MEDS: TAPAZOLE PO SCH ×3 (09:12→21:53)
[2018-10-11] MEDS: VITAMIN B-1 PO SCH (09:12)
[2018-10-11] MEDS: FOLVITE PO SCH (09:12)
[2018-10-11] MEDS: PEPCID PO SCH (10:00)
[2018-10-11] MEDS: SODIUM CHLORIDE FLUSH SYRINGE 10 ML IV SCH ×2 (10:00→21:54)
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
--- NOTE | 2018-10-11 10:40 | Progress Note ---
Subjective - Reason for Consult Consult date: 10/11/18 Reason for consult: Psychiatry Follow-up - Chief Complaint Chief complaint: "I feel much better" 43 y.o. AA female who presented to the ER for evaluation. Psychiatry was consulted to see the patient for possible anxiety do. Today the patient was calm and cooperative during the assessment. She stated that she feel much better today. She stated that she got lots of rest last night. She stated that she plan to follow up with [facility] for outpatient psy/therapy services. She denies SI/HI's and AVH's. She denies any side effects from her medication. Mental Status Exam - Vital signs Last Vital Signs Temp 97.9 F 10/11/18 08:27 Pulse 98 H 10/11/18 10:00 Resp 17 10/11/18 10:00 BP 94/59 10/11/18 08:27 Pulse Ox 98 10/11/18 10:00 - Exam Narrative exam: MSE: Appearance: calm, cooperative Behavior: regular eye contact Speech: regular rate and tone Mood: "better" Affect: congruent to mood Thought Process: linear Thought Content: denies SI/HI's and AVH's Motor Activity: lying in bed Cognition: A/O x 3 Insight: appropriate Judgment: appropriate Assessment and Plan Impression: PTSD.Today the patient was calm and cooperative during the assessment. UDS is negative. TSH is low, Free T4 is elevated. Medical: Hyperthyroidism DDx:R/O Mood DO, Unspecified Anxiety DO Recommendations/Plan: Continue Remeron 15 mg PO HS for PTSD and Xanax 0.25 mg PO Q8hrs PRN for acute anxiety. Discussed possible sucidality/medication induced steve with the patient reference Remeron, she verbalized understanding. Psy sign off. Dispo: The patient can follow up with [facility] for outpatient psy services. Will staff with Dr Derrell Roberson.
--- NOTE | 2018-10-11 11:02 | Progress Note ---
Assessment and Plan Assessment and plan: Hyperthyroidism. Thyroid function studies consistent with hyperthyroidism. Continue Tapazole. Check RAIU for further evaluation. Thyrotoxicosis. As above. Atrial fibrillation with RVR. Etiology secondary to hyperthyrroidism. The patient has been weaned off Cardizem drip. Continue Cardizem 60 mg every 8 hours. Cardiology following. Follow-up echocardiogram. Cardiology started pradaxa Anxiety disorder Full code status History Interval history: Palpitations weight loss Hospitalist Physical - Physical exam Narrative exam: Gen: Not in acute distress, lying in bed, HEENT: Normocephalic, atraumatic Neck: supple, no JVD Heart: S1 and S2 irreg, irregno murmurs, rubs or gallop Lungs: Clear, no crackles, no rhonchi Abd: soft, non tender, non distended, normal BS, Ext: No edema, no clubbing, no cyanosis Neuro: Awake,alert, Oriented X 3. No focal neuro signs Psych: normal mood - Constitutional Vitals: Temp Pulse Resp BP Pulse Ox 97.9 F 98 H 17 94/59 98 10/11/18 08:27 10/11/18 10:00 10/11/18 10:00 10/11/18 08:27 10/11/18 10:00 General appearance: Present: no acute distress, well-nourished Results - Labs CBC & Chem 7: 10/09/18 04:34 10/09/18 04:34 Labs: Laboratory Last Values WBC 4.5 K/mm3 (4.5-11.0) 10/09/18 04:34 RBC 4.79 M/mm3 (3.65-5.03) 10/09/18 04:34 Hgb 13.0 gm/dl (10.1-14.3) 10/09/18 04:34 Hct 38.7 % (30.3-42.9) 10/09/18 04:34 MCV 81 fl (79-97) 10/09/18 04:34 MCH 27 pg (28-32) L 10/09/18 04:34 MCHC 34 % (30-34) 10/09/18 04:34 RDW 14.2 % (13.2-15.2) 10/09/18 04:34 Plt Count 240 K/mm3 (140-440) 10/09/18 04:34 Lymph % (Auto) 11.2 % (13.4-35.0) L 10/09/18 04:34 [place] % (Auto) 4.9 % (0.0-7.3) 10/09/18 04:34 Eos % (Auto) 0.0 % (0.0-4.3) 10/09/18 04:34 Baso % (Auto) 0.8 % (0.0-1.8) 10/09/18 04:34 Lymph # 0.5 K/mm3 (1.2-5.4) L 10/09/18 04:34 [place] # 0.2 K/mm3 (0.0-0.8) 10/09/18 04:34 Eos # 0.0 K/mm3 (0.0-0.4) 10/09/18 04:34 Baso # 0.0 K/mm3 (0.0-0.1) 10/09/18 04:34 Seg Neutrophils % 83.1 % (40.0-70.0) H 10/09/18 04:34 Seg Neutrophils # 3.7 K/mm3 (1.8-7.7) 10/09/18 04:34 PT 13.2 Sec. (12.2-14.9) 10/08/18 14:20 INR 1.03 (0.87-1.13) 10/08/18 14:20 APTT 28.1 Sec. (24.2-36.6) 10/08/18 14:20 1075.24 ng/mlDDU (0-234) H 10/08/18 14:20 Sodium 139 mmol/L (137-145) 10/09/18 04:34 Potassium 3.9 mmol/L (3.6-5.0) 10/09/18 04:34 Chloride 101.6 mmol/L (98-107) 10/09/18 04:34 Carbon Dioxide 24 mmol/L (22-30) 10/09/18 04:34 17 mmol/L 10/09/18 04:34 BUN 11 mg/dL (7-17) 10/09/18 04:34 0.5 mg/dL (0.7-1.2) L 10/09/18 04:34 Estimated GFR > 60 ml/min 10/09/18 04:34 22 % 08/11/19 04:34 Glucose 149 mg/dL (65-100) H 10/09/18 04:34 Calcium 10.2 mg/dL (8.4-10.2) 10/09/18 04:34 Magnesium 2.20 mg/dL (1.7-2.3) 10/08/18 15:30 0.60 mg/dL (0.1-1.2) 10/09/18 04:34 < 0.2 mg/dL (0-0.2) 10/08/18 14:20 AST 50 units/L (5-40) H 10/09/18 04:34 ALT 46 units/L (7-56) 10/09/18 04:34 113 units/L (35-129) 10/09/18 04:34 193 units/L (30-135) H 10/08/18 14:20 CK-MB (CK-2) 2.9 ng/mL (0.0-4.0) 10/08/18 14:20 CK-MB (CK-2) Rel Index 1.5 (0-4) 10/08/18 14:20 < 0.010 ng/mL (0.00-0.029) 10/08/18 19:35 NT-Pro-B Natriuret Pep 75.99 pg/mL (0-450) 10/08/18 14:20 7.6 g/dL (6.3-8.2) 10/09/18 04:34 4.2 g/dL (3.9-5) 10/09/18 04:34 1.2 % 10/09/18 04:34 TSH < 0.005 mlU/mL (0.270-4.200) L 10/08/18 15:30 Free T4 5.16 ng/dL (0.76-1.46) H 10/08/18 15:30 HCG, Qual Negative (Negative) 10/09/18 13:40 Straw (Yellow) 10/08/18 15:15 Clear (Clear) 10/08/18 15:15 6.0 (5.0-7.0) 10/08/18 15:15 Ur Specific [place] 1.003 (1.003-1.030) 10/08/18 15:15 <15 mg/dl mg/dL (Negative) 10/08/18 15:15 Neg mg/dL (Negative) 10/08/18 15:15 Neg mg/dL (Negative) 10/08/18 15:15 Mod (Negative) 10/08/18 15:15 Neg (Negative) 10/08/18 15:15 Ur Reducing Substances Not Reportable 10/08/18 15:15 Neg (Negative) 10/08/18 15:15 Not Reportable 10/08/18 15:15 < 2.0 mg/dL (<2.0) 10/08/18 15:15 Ur Leukocyte Esterase Neg (Negative) 10/08/18 15:15 < 1.0 /HPF (0.0-6.0) 10/08/18 15:15 3.0 /HPF (0.0-6.0) 10/08/18 15:15 U Epithel Cells (Auto) 1.0 /HPF (0-13.0) 10/08/18 15:15 Urine HCG, Qual Negative (Negative) 10/08/18 15:15 Presumptive negative 10/08/18 15:15 Presumptive negative 10/08/18 15:15 Ur Barbiturates Screen Presumptive negative 10/08/18 15:15 Ur Phencyclidine Scrn Presumptive negative 10/08/18 15:15 Ur Amphetamines Screen Presumptive negative 10/08/18 15:15 U Benzodiazepines Scrn Presumptive negative 10/08/18 15:15 [place] 0.4 mmol/L (0.0-1.2) 10/08/18 15:15 Presumptive negative 10/08/18 15:15 U Marijuana (THC) Screen Presumptive negative 10/08/18 15:15 Disclamer 10/08/18 15:15 Blood Type O POSITIVE 10/08/18 14:30 Antibody Screen Negative 10/08/18 14:30 Active Medications - Current Medications Current Medications: Generic Name Dose Route Start Last Admin Trade Name Freq PRN Reason Stop Dose Admin Acetaminophen 650 mg 10/11/18 02:35 10/11/18 03:23 Tylenol PO 650 mg Q4H PRN Administration Pain, Mild (1-3) Alprazolam 0.25 mg 10/08/18 22:42 10/10/18 19:47 Xanax PO 0.25 mg Q8H PRN Administration Anxiety Aspirin 325 mg 10/08/18 16:00 10/11/18 09:11 Aspirin PO 325 mg QDAY ELVIRA Administration Dabigatran 150 mg 10/09/18 12:00 10/11/18 09:11 Pradaxa PO 150 mg BID ELVIRA Administration Protocol Diltiazem HCl 60 mg 10/10/18 22:00 10/11/18 09:16 Cardizem PO Not Given Q6H ELVIRA Famotidine 20 mg 10/11/18 10:00 10/11/18 10:00 Pepcid PO Not Given QDAY ELVIRA Folic Acid 1 mg 10/09/18 10:00 10/11/18 09:12 Folvite PO 1 mg QDAY ELVIRA Administration Iodine/Potassium Iodide 1 ml 10/08/18 22:00 10/11/18 05:59 Lugol's Solution 5% PO 1 ml Q8HR ELVIRA Administration Lorazepam 2 mg 10/09/18 06:37 10/10/18 10:01 Ativan IV 2 mg Q1HR PRN Administration CIWA-Ar 8-15 Methimazole 5 mg 10/08/18 22:00 10/11/18 09:12 Tapazole PO 5 mg Q8HR ELVIRA Administration Mirtazapine 15 mg 10/10/18 22:00 10/10/18 21:10 Remeron PO 15 mg QHS ELVIRA Administration Multivitamins 1 each 10/09/18 10:00 10/11/18 09:11 Theragran Tab PO 1 each QDAY ELVIRA Administration Propranolol HCl 10 mg 10/10/18 18:00 10/11/18 05:59 Inderal PO 10 mg Q6HR ELVIRA Administration Sodium Chloride 10 ml 10/08/18 22:00 10/11/18 10:00 Sodium Chloride Flush Syringe 10 Ml IV Not Given BID ELVIRA Sodium Chloride 10 ml 10/08/18 18:30 Sodium Chloride Flush Syringe 10 Ml IV PRN PRN LINE FLUSH Thiamine HCl 100 mg 10/09/18 10:00 10/11/18 09:12 Vitamin B-1 PO 100 mg QDAY ELVIRA Administration Tramadol HCl 25 mg 10/11/18 02:35 Ultram PO Q4H PRN Pain, Moderate (4-6)
[2018-10-11] MEDS: XANAX PO PRN ×2 (13:55→21:53)
--- NOTE | 2018-10-11 13:59 | Progress Note ---
Assessment and Plan Pt alert and awake. Little anxious. No acute respiratory distress. Pt is on room air O2 saturation 98%. Pt had angio CT of the chest 10/10/18 with no acute pulmonary findings. Negative for pulmonary embolism. - Patient Problems (1) Atrial fibrillation with RVR Current Visit: Yes Status: Acute Plan to address problem: Pt is on Pradaxa. Management as per cardiology. (2) EtOH dependence Current Visit: Yes Status: Acute Qualifiers: Complication of substance-induced condition: with unspecified complication Plan to address problem: history of EtOH dependence. Management as per primary care. 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 Management as per primary care. (4) Shortness of breath Current Visit: Yes Status: Acute Plan to address problem: Shortness of breath, improved. No acute respiratory distress. O2 saturation 98% on room air. Subjective Date of service: 10/11/18 Interval history: Pt alert and awake. Little anxious. No acute respiratory distress. Pt is on room air O2 saturation 98%. Pt had angio CT of the chest 10/10/18 with no acute pulmonary findings. Negative for pulmonary embolism. Objective Vital Signs - 12hr 10/11/18 10/11/18 10/11/18 04:00 05:05 06:00 Temperature 98.2 F Pulse Rate 89 Pulse Rate [ From Monitor] Respiratory 18 Rate Blood Pressure 89/49 100/60 110/66 [Right] O2 Sat by Pulse 99 Oximetry 10/11/18 10/11/18 08:27 10:00 Temperature 97.9 F Pulse Rate 84 Pulse Rate [ 98 H From Monitor] Respiratory 18 17 Rate Blood Pressure 94/59 [Right] O2 Sat by Pulse 100 98 Oximetry Constitutional: no acute distress, alert Eyes: non-icteric Neck: supple, no lymphadenopathy Ascultation: Bilateral: clear Cardiovascular: regular rate and rhythm Gastrointestinal: normoactive bowel sounds, soft Integumentary: normal Extremities: no cyanosis, no edema Neurologic: normal mental status, non-focal exam, pupils equal and round, CN II- XII normal Psychiatric: anxious CBC and BMP: 08/11/19 04:34 10/09/18 04:34 ABG, PT/INR, D-dimer: PT/INR, D-dimer PT 13.2 Sec. (12.2-14.9) 10/08/18 14:20 INR 1.03 (0.87-1.13) 10/08/18 14:20 1075.24 ng/mlDDU (0-234) H 10/08/18 14:20 Abnormal lab findings: Abnormal Labs 10/08/18 10/08/18 10/08/18 14:20 14:20 14:20 RBC 5.13 H MCH 27 L Lymph % (Auto) [place] % (Auto) 7.5 H Lymph # Seg Neutrophils % D-Dimer 1075.24 H Sodium 136 L Potassium 3.5 L Chloride 96.4 L BUN 6 L Creatinine 0.4 L Glucose 122 H AST 65 H Total Creatine Kinase 193 H TSH Free T4 10/08/18 10/08/18 10/09/18 14:20 15:30 04:34 RBC MCH 27 L Lymph % (Auto) 11.2 L [place] % (Auto) Lymph # 0.5 L Seg Neutrophils % 83.1 H D-Dimer Sodium Potassium Chloride BUN Creatinine Glucose AST Total Creatine Kinase TSH < 0.005 L < 0.005 L Free T4 5.16 H 10/09/18 04:34 RBC MCH Lymph % (Auto) [place] % (Auto) Lymph # Seg Neutrophils % D-Dimer Sodium Potassium Chloride BUN Creatinine 0.5 L Glucose 149 H AST 50 H Total Creatine Kinase TSH Free T4 Chest x-ray: report reviewed (No acute findings), image reviewed CT scan - chest: report reviewed, image reviewed Additional Studies: CTA Chest 10/08/18: FINDINGS: PULMONARY ARTERIES: No pulmonary emboli. THORACIC AORTA: No significant abnormality. HEART: Upper normal size. CORONARY ARTERIES: No significant calcification. MEDIASTINUM / RALPH: Mild soft tissue density in the anterior mediastinum represents residual thymus. PLEURA: No pleural effusion. No pneumothorax. LUNGS: No acute air space or interstitial disease. ADDITIONAL FINDINGS: None. UPPER ABDOMEN: Diffuse chunky calcifications throughout the pancreas characteristic of chronic calcific pancreatitis. Liver is diffusely hypodense characteristic of hepatic steatosis. SKELETAL STRUCTURES: No significant osseous abnormality. IMPRESSION: 1. No CT evidence for pulmonary embolism. 2. No acute pulmonary or pleural findings. 3. Hepatic steatosis and chronic calcific pancreatitis.
[2018-10-11] MEDS: REMERON PO SCH (21:54)
[2018-10-12] MEDS: INDERAL PO SCH ×5 (00:21→17:10)
[2018-10-12] MEDS: ULTRAM PO PRN (01:59)
[2018-10-12] MEDS: CARDIZEM PO SCH ×4 (03:48→22:35)
[2018-10-12] MEDS: XANAX PO PRN ×3 (05:30→22:42)
[2018-10-12] MEDS: LUGOL'S SOLUTION 5% PO SCH ×3 (05:30→22:36)
[2018-10-12] MEDS: TAPAZOLE PO SCH ×3 (05:31→22:36)
[2018-10-12] MEDS: ASPIRIN PO SCH (09:40)
[2018-10-12] MEDS: FOLVITE PO SCH (09:40)
[2018-10-12] MEDS: PEPCID PO SCH (09:40)
[2018-10-12] MEDS: PRADAXA PO SCH ×2 (09:40→22:35)
[2018-10-12] MEDS: VITAMIN B-1 PO SCH (09:41)
[2018-10-12] MEDS: THERAGRAN Tab PO SCH (09:41)
[2018-10-12] MEDS: SODIUM CHLORIDE FLUSH SYRINGE 10 ML IV SCH ×2 (09:42→22:36)
--- NOTE | 2018-10-12 10:25 | Progress Note ---
<BANDARKENNETHANJANA - Last Filed: 10/12/18 10:23> Assessment and Plan Thyrotoxicosis New onset atrial fibrillation initiated on Pradaxa on Diltiazem and Propranolol for rate control Anxiety disorder Normal LVEF 60-65% by echocardiogram done this admission. Continue medical therapy for atrial fibrillation that persists. Pre-discharge stress thallium test. This will be done tomorrow morning. Subjective Date of service: 10/12/18 Interval history: Patient is resting in bed comfortably. Afib with a well controlled ventricular rate on telemetry. Objective Vital Signs Temp Pulse Pulse Resp BP Pulse Ox 10/12/18 09:40 82 99/54 10/12/18 07:25 98.1 F 82 18 99/54 99 10/12/18 05:31 90 94/46 10/12/18 03:48 82 105/59 10/12/18 03:30 97.9 F 82 16 105/59 97 10/12/18 02:59 18 10/12/18 01:59 18 10/12/18 00:21 86 96/47 10/11/18 23:22 98.4 F 86 16 96/47 99 10/11/18 21:53 88 114/68 10/11/18 20:30 100 H 18 96 10/11/18 20:00 104 H 10/11/18 19:41 97.7 F 88 16 114/68 98 10/11/18 18:52 91 H 98/52 99 10/11/18 18:51 79 98/58 10/11/18 16:37 95 H 102/59 10/11/18 15:34 98.2 F 95 H 18 102/59 100 - Physical Examination General: No Apparent Distress HEENT: Positive: PERRL Neck: Positive: trachea midline Cardiac: Positive: irregularly irregular Lungs: Positive: Decreased Breath Sounds Neuro: Positive: Grossly Intact Abdomen: Positive: Active Bowel Sounds Extremities: Absent: edema <NANETTE GARRETT - Last Filed: 10/12/18 20:01> Assessment and Plan I have seen and evaluated the patient and agree with the assessment and plan. Continue rate control strategy for treatment of atrial fibrillation. Rate control with BB and CCB. Echo shows normal LV function. Anticoagulation with pradaxa. Objective Vital Signs Temp Pulse Pulse Resp BP Pulse Ox 10/12/18 19:55 108 H 18 97 10/12/18 17:10 97 H 104/65 10/12/18 15:49 97 H 104/65 10/12/18 12:43 82 104/68 10/12/18 12:06 98.1 F 18 104/68 10/12/18 10:00 136 H 100 H 18 98 10/12/18 09:40 82 99/54 10/12/18 07:25 98.1 F 82 18 99/54 99 10/12/18 05:31 90 94/46 10/12/18 03:48 82 105/59 10/12/18 03:30 97.9 F 82 16 105/59 97 10/12/18 02:59 18 10/12/18 01:59 18 10/12/18 00:21 86 96/47 10/11/18 23:22 98.4 F 86 16 96/47 99 10/11/18 21:53 88 114/68 10/11/18 20:30 100 H 18 96
--- NOTE | 2018-10-12 12:14 | Progress Note ---
Assessment and Plan Assessment and plan: Hyperthyroidism. Thyroid function studies consistent with hyperthyroidism. Continue Tapazole. Check RAIU for further evaluation. Thyrotoxicosis. As above. Atrial fibrillation with RVR. Etiology secondary to hyperthyrroidism. Off Cardizem drip. Continue Cardizem 60 mg every 8 hours. Cardiology following. Cardiology started pradaxa For stress test tomorrow Anxiety disorder Full code status History Interval history: Palpitations weight loss Hospitalist Physical - Physical exam Narrative exam: Gen: Not in acute distress, lying in bed, HEENT: Normocephalic, atraumatic Neck: supple, no JVD Heart: S1 and S2 irreg, irreg, no murmurs, rubs or gallop Lungs: Clear, no crackles, no rhonchi Abd: soft, non tender, non distended, normal BS, Ext: No edema, no clubbing, no cyanosis Neuro: Awake,alert, Oriented X 3. No focal neuro signs Psych: normal mood - Constitutional Vitals: Temp Pulse Resp BP Pulse Ox 98.1 F 82 18 99/54 99 10/12/18 07:25 10/12/18 09:40 10/12/18 07:25 10/12/18 09:40 10/12/18 07:25 General appearance: Present: no acute distress, well-nourished Results - Labs CBC & Chem 7: 10/09/18 04:34 10/09/18 04:34 Labs: Laboratory Last Values WBC 4.5 K/mm3 (4.5-11.0) 10/09/18 04:34 RBC 4.79 M/mm3 (3.65-5.03) 10/09/18 04:34 Hgb 13.0 gm/dl (10.1-14.3) 10/09/18 04:34 Hct 38.7 % (30.3-42.9) 10/09/18 04:34 MCV 81 fl (79-97) 10/09/18 04:34 MCH 27 pg (28-32) L 10/09/18 04:34 MCHC 34 % (30-34) 10/09/18 04:34 RDW 14.2 % (13.2-15.2) 10/09/18 04:34 Plt Count 240 K/mm3 (140-440) 10/09/18 04:34 Lymph % (Auto) 11.2 % (13.4-35.0) L 10/09/18 04:34 [place] % (Auto) 4.9 % (0.0-7.3) 10/09/18 04:34 Eos % (Auto) 0.0 % (0.0-4.3) 10/09/18 04:34 Baso % (Auto) 0.8 % (0.0-1.8) 10/09/18 04:34 Lymph # 0.5 K/mm3 (1.2-5.4) L 10/09/18 04:34 [place] # 0.2 K/mm3 (0.0-0.8) 10/09/18 04:34 Eos # 0.0 K/mm3 (0.0-0.4) 10/09/18 04:34 Baso # 0.0 K/mm3 (0.0-0.1) 10/09/18 04:34 Seg Neutrophils % 83.1 % (40.0-70.0) H 10/09/18 04:34 Seg Neutrophils # 3.7 K/mm3 (1.8-7.7) 10/09/18 04:34 PT 13.2 Sec. (12.2-14.9) 10/08/18 14:20 INR 1.03 (0.87-1.13) 10/08/18 14:20 APTT 28.1 Sec. (24.2-36.6) 10/08/18 14:20 1075.24 ng/mlDDU (0-234) H 10/08/18 14:20 Sodium 139 mmol/L (137-145) 10/09/18 04:34 Potassium 3.9 mmol/L (3.6-5.0) 10/09/18 04:34 Chloride 101.6 mmol/L (98-107) 10/09/18 04:34 Carbon Dioxide 24 mmol/L (22-30) 10/09/18 04:34 17 mmol/L 10/09/18 04:34 BUN 11 mg/dL (7-17) 10/09/18 04:34 0.5 mg/dL (0.7-1.2) L 10/09/18 04:34 Estimated GFR > 60 ml/min 10/09/18 04:34 22 % 10/09/18 04:34 Glucose 149 mg/dL (65-100) H 10/09/18 04:34 Calcium 10.2 mg/dL (8.4-10.2) 10/09/18 04:34 Magnesium 2.20 mg/dL (1.7-2.3) 10/08/18 15:30 0.60 mg/dL (0.1-1.2) 10/09/18 04:34 < 0.2 mg/dL (0-0.2) 10/08/18 14:20 AST 50 units/L (5-40) H 10/09/18 04:34 ALT 46 units/L (7-56) 10/09/18 04:34 113 units/L (35-129) 10/09/18 04:34 193 units/L (30-135) H 10/08/18 14:20 CK-MB (CK-2) 2.9 ng/mL (0.0-4.0) 10/08/18 14:20 CK-MB (CK-2) Rel Index 1.5 (0-4) 10/08/18 14:20 < 0.010 ng/mL (0.00-0.029) 10/08/18 19:35 NT-Pro-B Natriuret Pep 75.99 pg/mL (0-450) 10/08/18 14:20 7.6 g/dL (6.3-8.2) 10/09/18 04:34 4.2 g/dL (3.9-5) 10/09/18 04:34 1.2 % 10/09/18 04:34 TSH < 0.005 mlU/mL (0.270-4.200) L 10/08/18 15:30 Free T4 5.16 ng/dL (0.76-1.46) H 10/08/18 15:30 HCG, Qual Negative (Negative) 10/09/18 13:40 Straw (Yellow) 10/08/18 15:15 Clear (Clear) 10/08/18 15:15 6.0 (5.0-7.0) 10/08/18 15:15 Ur Specific [place] 1.003 (1.003-1.030) 10/08/18 15:15 <15 mg/dl mg/dL (Negative) 10/08/18 15:15 Neg mg/dL (Negative) 10/08/18 15:15 Neg mg/dL (Negative) 10/08/18 15:15 Mod (Negative) 10/08/18 15:15 Neg (Negative) 10/08/18 15:15 Ur Reducing Substances Not Reportable 10/08/18 15:15 Neg (Negative) 10/08/18 15:15 Not Reportable 10/08/18 15:15 < 2.0 mg/dL (<2.0) 10/08/18 15:15 Ur Leukocyte Esterase Neg (Negative) 10/08/18 15:15 < 1.0 /HPF (0.0-6.0) 10/08/18 15:15 3.0 /HPF (0.0-6.0) 10/08/18 15:15 U Epithel Cells (Auto) 1.0 /HPF (0-13.0) 10/08/18 15:15 Urine HCG, Qual Negative (Negative) 10/08/18 15:15 Presumptive negative 10/08/18 15:15 Presumptive negative 10/08/18 15:15 Ur Barbiturates Screen Presumptive negative 10/08/18 15:15 Ur Phencyclidine Scrn Presumptive negative 10/08/18 15:15 Ur Amphetamines Screen Presumptive negative 10/08/18 15:15 U Benzodiazepines Scrn Presumptive negative 10/08/18 15:15 [place] 0.4 mmol/L (0.0-1.2) 10/08/18 15:15 Presumptive negative 10/08/18 15:15 U Marijuana (THC) Screen Presumptive negative 10/08/18 15:15 Disclamer 10/08/18 15:15 Blood Type O POSITIVE 10/08/18 14:30 Antibody Screen Negative 10/08/18 14:30 Active Medications - Current Medications Current Medications: Generic Name Dose Route Start Last Admin Trade Name Freq PRN Reason Stop Dose Admin Acetaminophen 650 mg 10/11/18 02:35 10/11/18 03:23 Tylenol PO 650 mg Q4H PRN Administration Pain, Mild (1-3) Alprazolam 0.25 mg 10/08/18 22:42 10/12/18 05:30 Xanax PO 0.25 mg Q8H PRN Administration Anxiety Aspirin 325 mg 10/08/18 16:00 10/12/18 09:40 Aspirin PO 325 mg QDAY ELVIRA Administration Dabigatran 150 mg 10/09/18 12:00 10/12/18 09:40 Pradaxa PO 150 mg BID ELVIRA Administration Protocol Diltiazem HCl 60 mg 10/10/18 22:00 10/12/18 09:40 Cardizem PO Not Given Q6H ELVIRA Famotidine 20 mg 10/11/18 10:00 10/12/18 09:40 Pepcid PO 20 mg QDAY ELVIRA Administration Folic Acid 1 mg 10/09/18 10:00 10/12/18 09:40 Folvite PO 1 mg QDAY ELVIRA Administration Iodine/Potassium Iodide 1 ml 10/08/18 22:00 10/12/18 05:30 Lugol's Solution 5% PO 1 ml Q8HR ELVIRA Administration Lorazepam 2 mg 10/09/18 06:37 10/10/18 10:01 Ativan IV 2 mg Q1HR PRN Administration CIWA-Ar 8-15 Methimazole 5 mg 10/08/18 22:00 10/12/18 05:31 Tapazole PO 5 mg Q8HR ELVIRA Administration Mirtazapine 15 mg 10/10/18 22:00 10/11/18 21:54 Remeron PO 15 mg QHS ELVIRA Administration Multivitamins 1 each 10/09/18 10:00 10/12/18 09:41 Theragran Tab PO 1 each QDAY ELVIRA Administration Propranolol HCl 10 mg 10/10/18 18:00 10/12/18 05:31 Inderal PO Not Given Q6HR ELVIRA Sodium Chloride 10 ml 10/08/18 22:00 10/12/18 09:42 Sodium Chloride Flush Syringe 10 Ml IV 10 ml BID ELVIRA Administration Sodium Chloride 10 ml 10/08/18 18:30 Sodium Chloride Flush Syringe 10 Ml IV PRN PRN LINE FLUSH Thiamine HCl 100 mg 10/09/18 10:00 10/12/18 09:41 Vitamin B-1 PO 100 mg QDAY ELVIRA Administration Tramadol HCl 25 mg 10/11/18 02:35 10/12/18 01:59 Ultram PO 25 mg Q4H PRN Administration Pain, Moderate (4-6)
--- NOTE | 2018-10-12 14:39 | Progress Note ---
Assessment and Plan t alert and awake. Little anxious. No complaint of chest pain or shortness of breath. Pt is on room air O2 saturation 98%. Pt had angio CT of the chest 10/10/18 with no acute pulmonary findings. Negative for pulmonary embolism. . - Patient Problems (1) Atrial fibrillation with RVR Current Visit: Yes Status: Acute Plan to address problem: Pt is on Pradaxa. Management as per cardiology. (2) EtOH dependence Current Visit: Yes Status: Acute Qualifiers: Complication of substance-induced condition: with unspecified complication Plan to address problem: history of EtOH dependence. Management as per primary care. 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 Management as per primary care. (4) Shortness of breath Current Visit: Yes Status: Acute Plan to address problem: Shortness of breath, improved. No acute respiratory distress. O2 saturation 98% on room air. Subjective Date of service: 10/12/18 Interval history: Pt alert and awake. Little anxious. No complaint of chest pain or shortness of breath. Pt is on room air O2 saturation 98%. Pt had angio CT of the chest 10/10/18 with no acute pulmonary findings. Negative for pulmonary embolism. Objective Vital Signs - 12hr 10/12/18 10/12/18 10/12/18 02:59 03:30 03:48 Temperature 97.9 F Pulse Rate 82 82 Pulse Rate [ Apical] Respiratory 18 16 Rate Blood Pressure 105/59 105/59 O2 Sat by Pulse 97 Oximetry 10/12/18 10/12/18 10/12/18 05:31 07:25 09:40 Temperature 98.1 F Pulse Rate 90 82 82 Pulse Rate [ Apical] Respiratory 18 Rate Blood Pressure 94/46 99/54 99/54 O2 Sat by Pulse 99 Oximetry 10/12/18 10/12/18 10/12/18 10:00 12:06 12:43 Temperature 98.1 F Pulse Rate 82 Pulse Rate [ 100 H Apical] Respiratory 18 18 Rate Blood Pressure 104/68 104/68 O2 Sat by Pulse 98 Oximetry Constitutional: no acute distress, alert Eyes: non-icteric Neck: supple, no lymphadenopathy Ascultation: Bilateral: clear Cardiovascular: regular rate and rhythm Gastrointestinal: normoactive bowel sounds, soft Integumentary: normal Extremities: no cyanosis, no edema Neurologic: normal mental status, non-focal exam, pupils equal and round, CN II- XII normal Psychiatric: anxious CBC and BMP: 10/09/18 04:34 10/09/18 04:34 ABG, PT/INR, D-dimer: PT/INR, D-dimer PT 13.2 Sec. (12.2-14.9) 10/08/18 14:20 INR 1.03 (0.87-1.13) 10/08/18 14:20 1075.24 ng/mlDDU (0-234) H 10/08/18 14:20 Abnormal lab findings: Abnormal Labs 10/08/18 10/08/18 10/08/18 14:20 14:20 14:20 RBC 5.13 H MCH 27 L Lymph % (Auto) [place] % (Auto) 7.5 H Lymph # Seg Neutrophils % D-Dimer 1075.24 H Sodium 136 L Potassium 3.5 L Chloride 96.4 L BUN 6 L Creatinine 0.4 L Glucose 122 H AST 65 H Total Creatine Kinase 193 H TSH Free T4 10/08/18 10/08/18 10/09/18 14:20 15:30 04:34 RBC MCH 27 L Lymph % (Auto) 11.2 L [place] % (Auto) Lymph # 0.5 L Seg Neutrophils % 83.1 H D-Dimer Sodium Potassium Chloride BUN Creatinine Glucose AST Total Creatine Kinase TSH < 0.005 L < 0.005 L Free T4 5.16 H 10/09/18 04:34 RBC MCH Lymph % (Auto) [place] % (Auto) Lymph # Seg Neutrophils % D-Dimer Sodium Potassium Chloride BUN Creatinine 0.5 L Glucose 149 H AST 50 H Total Creatine Kinase TSH Free T4
[2018-10-12] MEDS: ATIVAN IV PRN (15:52)
[2018-10-12] MEDS: REMERON PO SCH (22:35)
[2018-10-13] MEDS: INDERAL PO SCH ×3 (00:38→12:21)
[2018-10-13] MEDS: CARDIZEM PO SCH ×2 (04:59→10:00)
[2018-10-13] MEDS: LUGOL'S SOLUTION 5% PO SCH ×2 (05:01→13:47)
[2018-10-13] MEDS: TAPAZOLE PO SCH ×2 (05:02→13:47)
--- NOTE | 2018-10-13 09:33 | Progress Note ---
Assessment and Plan (1) Atrial fibrillation with RVR Current Visit: Yes Status: Acute Plan to address problem: Pt is on Pradaxa. Management as per cardiology. (2) EtOH dependence Current Visit: Yes Status: Acute Qualifiers: Complication of substance-induced condition: with unspecified complication Plan to address problem: history of EtOH dependence. Management as per primary care. 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 Management as per primary care. Subjective Date of service: 10/13/18 Interval history: Patient is seen today for: Seen and examined at bedside; 24hour events reviewed; nursing and respiratory care staff consulted; no adverse overnight events reported to me; Objective Vital Signs - 12hr 10/12/18 10/13/18 10/13/18 23:33 00:00 00:38 Temperature 98.2 F Pulse Rate 112 H 106 H Respiratory 16 Rate Blood Pressure 99/57 99/57 O2 Sat by Pulse 99 Oximetry 10/13/18 10/13/18 03:36 04:59 Temperature 98.6 F Pulse Rate 85 99 H Respiratory 16 Rate Blood Pressure 106/47 O2 Sat by Pulse 99 Oximetry Constitutional: no acute distress, alert Eyes: non-icteric Neck: supple, no lymphadenopathy Ascultation: Bilateral: clear Cardiovascular: regular rate and rhythm Gastrointestinal: normoactive bowel sounds, soft Integumentary: normal Extremities: no cyanosis, no edema Neurologic: normal mental status, non-focal exam, pupils equal and round, CN II- XII normal Psychiatric: anxious CBC and BMP: 10/09/18 04:34 10/09/18 04:34 ABG, PT/INR, D-dimer: PT/INR, D-dimer PT 13.2 Sec. (12.2-14.9) 10/08/18 14:20 INR 1.03 (0.87-1.13) 10/08/18 14:20 1075.24 ng/mlDDU (0-234) H 10/08/18 14:20 Abnormal lab findings: Abnormal Labs 10/08/18 10/08/18 10/08/18 14:20 14:20 14:20 RBC 5.13 H MCH 27 L Lymph % (Auto) [place] % (Auto) 7.5 H Lymph # Seg Neutrophils % D-Dimer 1075.24 H Sodium 136 L Potassium 3.5 L Chloride 96.4 L BUN 6 L Creatinine 0.4 L Glucose 122 H AST 65 H Total Creatine Kinase 193 H TSH Free T4 10/08/18 10/08/18 10/09/18 14:20 15:30 04:34 RBC MCH 27 L Lymph % (Auto) 11.2 L [place] % (Auto) Lymph # 0.5 L Seg Neutrophils % 83.1 H D-Dimer Sodium Potassium Chloride BUN Creatinine Glucose AST Total Creatine Kinase TSH < 0.005 L < 0.005 L Free T4 5.16 H 10/09/18 04:34 RBC MCH Lymph % (Auto) [place] % (Auto) Lymph # Seg Neutrophils % D-Dimer Sodium Potassium Chloride BUN Creatinine 0.5 L Glucose 149 H AST 50 H Total Creatine Kinase TSH Free T4
[2018-10-13 09:38] VITALS: BP 106/54
[2018-10-13] MEDS: ASPIRIN PO SCH (11:01)
[2018-10-13] MEDS: FOLVITE PO SCH (11:01)
[2018-10-13] MEDS: PRADAXA PO SCH (11:01)
[2018-10-13] MEDS: VITAMIN B-1 PO SCH (11:01)
[2018-10-13] MEDS: ULTRAM PO PRN (11:02)
[2018-10-13] MEDS: PEPCID PO SCH (12:19)
[2018-10-13] MEDS: SODIUM CHLORIDE FLUSH SYRINGE 10 ML IV SCH (12:20)
[2018-10-13] MEDS: THERAGRAN Tab PO SCH (12:20)
--- NOTE | 2018-10-13 13:34 | Progress Note ---
Assessment and Plan Thyrotoxicosis New onset atrial fibrillation initiated on Pradaxa on Diltiazem and Propranolol for rate control Anxiety disorder Normal LVEF 60-65% by echocardiogram done this admission. Continue medical therapy for atrial fibrillation that persists. We will discontinue Diltiazem and instead use long acting Propranolol for rate control of her Afib. Subjective Date of service: 10/13/18 Interval history: Stress thallium test not indicated. Patient denies chest pain and shortness of breath. Objective Vital Signs Temp Pulse Pulse Resp BP Pulse Ox 10/13/18 07:38 98.4 F 18 106/54 10/13/18 04:59 99 H 10/13/18 03:36 98.6 F 85 16 106/47 99 10/13/18 00:38 99/57 10/13/18 00:00 106 H 10/12/18 23:33 98.2 F 112 H 16 99/57 99 10/12/18 19:55 108 H 18 97 10/12/18 19:47 98.5 F 120 H 16 121/70 99 10/12/18 17:10 97 H 104/65 10/12/18 15:49 97 H 104/65 10/12/18 15:48 100 H 104/65 98 - Physical Examination General: No Apparent Distress HEENT: Positive: PERRL Neck: Positive: trachea midline Cardiac: Positive: irregularly irregular Lungs: Positive: Decreased Breath Sounds Neuro: Positive: Grossly Intact Abdomen: Positive: Active Bowel Sounds Extremities: Absent: edema
[2018-10-13] MEDS ORDERED: INDERAL LA PO SCH (14:00)
--- NOTE | 2018-10-13 14:53 | Discharge Summary ---
Providers - Providers Date of Admission: 10/08/18 18:30 Date of discharge: 10/13/18 Attending physician: NANETTE GORDON 10/08/18 19:40 Consult to Cardiology [CONS] Routine Consulting Provider: CARA VARGAS Reason For Exam: Atrial fib with rvr 10/09/18 06:52 Consult to Mental Health [CONS] Routine Reason For Exam: Anxiety S/p [place] [place] consult to:: psych Notified:: Tisha Phone number called:: [phone] Was contact made?: Yes If yes, spoke with:: Tisha Time called:: 11:00 Comment:: will see patient when she recieves print out 10/10/18 12:14 Consult to Physician [CONS] Routine Comment: Consulting Provider: RUBÉN KAPLAN Physician Instructions: Reason For Exam: critical Care [facility] Condition: Fair Disposition: DC-01 TO HOME OR SELFCARE Core Measure Documentation - Palliative Care Palliative Care/ Comfort Measures: Not Applicable - Core Measures Any of the following diagnoses?: none Exam - Constitutional Vitals: Temp Pulse Resp BP Pulse Ox 98.4 F 99 H 18 106/54 99 10/13/18 07:38 10/13/18 04:59 10/13/18 07:38 10/13/18 07:38 10/13/18 03:36 Plan Activity: advance as tolerated Diet: low fat, low cholesterol, low salt Plan of Treatment: 1.Follow up with PCP in 1 week 2.Follow up with Dr. Vargas in 1 week 2.Follow up with Endocrinology in 1 week. 3.Follow up with Rheumatology in 1-2 weeks 3.follow up with Dr. Roa in 1 week Assessment: 1.Atrial fibrillation with RVR 2.Hyperthyroidism Follow up with: ANANYA PARTIDABOLTON MD DINO [Primary Care Provider] - 7 Days Prescriptions: Folic Acid [Folvite] 1 mg PO QDAY #30 tablet Propranolol LA [Inderal LA] 60 mg PO QDAY #30 capsule Multivitamin Tab [Multiple Vitamin TAB (Theragran)] 1 each PO QDAY #30 tablet Famotidine [Pepcid] 20 mg PO QDAY #60 tablet Dabigatran [Pradaxa] 150 mg PO BID #60 capsule methIMAzole [Tapazole] 5 mg PO Q8HR #90 tablet
== END 2018-10-13 15:52 | disposition home or self-care (01) | DRG 308 ==
LOC: ED 13:46 → CC1 18:30 → 4A 10-10 13:56
PROVIDERS: ADMIT Internal Medicine; ATTEND Internal Medicine
DX: I48.91 Unspecified atrial fibrillation (principal); E05.11 Thyrotoxicosis with toxic single thyroid nodule with thyrotoxic crisis or storm; E87.6 Hypokalemia; F43.10 Post-traumatic stress disorder, unspecified; F41.9 Anxiety disorder, unspecified; F10.20 Alcohol dependence, uncomplicated
CPT/HCPCS: 36415; 71045; 71275; 80048; 80053; 80076; 80178; 80307; 81001; 81025; 82550; 82553; 83735; 83880; 84439; 84443; 84484; 84703; 85025; 85379; 85610; 85730; 86850; 86900; 86901; 93005; 93010; 93306; 96365; 96375; G0378; J1100; J1800; J2060; Q9967

== ENCOUNTER 2018-10-21 15:10 | Emergency (ER) | payer MEDICARE ==
[2018-10-21 15:21] VITALS: BP 121/88
--- NOTE | 2018-10-21 15:23 | Event Note ---
ED Screening Note ED Screening Note: rx pradaxa propranolol [facility] etoh hyperthyroid reports falling and hitting head; no loc; swelling left frontal forehead area; no bleeding hyperverbal reports nose bleed clean 247 days neg cig no drugs pcp Alejandrina no si no hi no a/v trujillo This initial assessment/diagnostic orders/clinical plan/treatment(s) is/are subject to change based on patients health status, clinical progression and re- assessment by fellow clinical providers in the ED. Further treatment and workup at subsequent clinical providers discretion. Patient/guardian urged not to elope from the ED as their condition may be serious if not clinically assessed and managed. Initial orders include: clear medically requesting help with detox
[2018-10-21 15:55] LABS: Basophils # (Auto) 0.1 K/mm3 (0.0-0.1); Eosinophils # (Auto) 0.1 K/mm3 (0.0-0.4); Eosinophils % (Auto) 1.1 % (0.0-4.3); Hematocrit 39.5 % (30.3-42.9); Hemoglobin 13.4 gm/dl (10.1-14.3); Lymphocytes # (Auto) 2.6 K/mm3 (1.2-5.4); Lymphocytes % (Auto) 46.6 % (13.4-35.0); Mean Corpuscular HGB Conc 34 % (30-34); Mean Corpuscular Volume 80 fl (79-97); Monocytes # (Auto) 0.3 K/mm3 (0.0-0.8); Platelet Count 311 K/mm3 (140-440); Red Blood Count 4.95 M/mm3 (3.65-5.03); Red Cell Distribution Width 14.1 % (13.2-15.2)
[2018-10-21 15:56] LABS: Bilirubin,Urine NEG (Negative); Blood,Urine NEG (Negative); Color,Urine Straw (Yellow); Protein,Urine <15 mg/dL mg/dL (Negative); Urobilinogen,Urine < 2.0 mg/dL (<2.0)
[2018-10-21 16:08] LABS: Amphetamine Screen,Urine PRESUMPTIVE NEGATIVE; Benzodiazepines Screen,Urine PRESUMPTIVE NEGATIVE; Cannabinoid Screen,Urine PRESUMPTIVE NEGATIVE; Cocaine Screen,Urine PRESUMPTIVE NEGATIVE; Methadone Screen,Urine PRESUMPTIVE NEGATIVE; Opiate Screen,Urine PRESUMPTIVE NEGATIVE
[2018-10-21 16:09] LABS: INR 1.13 (0.87-1.13)
[2018-10-21 16:15] LABS: Alanine Aminotransferase 24 units/L (7-56); Albumin 3.9 g/dL (3.9-5); BUN/Creatinine Ratio 14; Blood Urea Nitrogen 7 mg/dL (7-17); Calcium 8.8 mg/dL (8.4-10.2); Hemolysis Index 6
[2018-10-21 16:33] LABS: HCG Qualitative,Urine Negative (Negative)
[2018-10-21 16:40] LABS: Partial Thromboplastin Time 36.1 Sec. (24.2-36.6)
[2018-10-21] MEDS ORDERED: NACL 0.9% 1000 ML 1,000 ML IV ONE (16:43)
[2018-10-21] MEDS ORDERED: VITAMIN B-1 100 MG, FOLVITE 1 MG, INFUVITE 10 ML in NACL 0.9% 1000 ML 1,000 ML IV ONE (16:43)
--- NOTE | 2018-10-21 16:47 | Emergency Department Report ---
ED Alcohol HPI - General Chief Complaint: Alcohol Stated Complaint: ETOH Time Seen by Provider: 10/21/18 15:16 Source: patient Mode of arrival: Ambulatory Limitations: No Limitations - History of Present Illness Initial Comments: Patient is a 43-year-old female that presents emergency room for acute alcohol intoxication and desires rehabilitation. Patient denies his symptoms. Patient denies nausea vomiting. Patient denies chest pain. Patient denies abdominal pain. Patient states she was clean for 200 plus days and relapsed last night. Patient states her last drink was 8 AM. MD Complaint: alcohol intoxication, desires rehab Last Drink: just [employer] Chronic Alcohol Use: Yes Previous Visits for Alcohol Intoxication?: Yes Recent Trauma: No Associated Symptoms: denies: nausea, vomiting, syncope, seizure, diaphoresis, tremors, abdominal pain, hematemesis, melena, depression, suicidality Treatments Prior to Arrival: none - Related Data Home Medications Medication Instructions Recorded Confirmed Last Taken Elmore 500 mg PO BID 10/09/18 10/21/18 10/14/18 Plaquenil 200 mg PO BID 10/09/18 10/21/18 09/29/18 Wellbutrin 75 mg PO BID 10/09/18 10/21/18 10/14/18 traZODone 100 mg PO HS 10/09/18 10/21/18 10/17/18 Previous Rx's Medication Instructions Recorded Last Taken Type Folic Acid [Folvite] 1 mg PO QDAY #30 tablet 10/13/18 10/21/18 Rx Multivitamin Tab [Multiple Vitamin 1 each PO QDAY #30 tablet 10/13/18 10/21/18 Rx TAB (Theragran)] Propranolol LA [Inderal LA] 60 mg PO QDAY #30 capsule 10/13/18 10/20/18 Rx Allergies Allergy/AdvReac Type Severity Reaction Status Date / Time No Known Allergies Allergy Unverified 10/08/18 18:49 ED Review of Systems ROS: Stated complaint: ETOH Other details as noted in HPI Constitutional: denies: chills, fever Eyes: denies: eye pain, eye discharge, vision change ENT: denies: ear pain, throat pain Respiratory: denies: cough, shortness of breath, wheezing Cardiovascular: denies: chest pain, palpitations Endocrine: no symptoms reported Gastrointestinal: denies: abdominal pain, nausea, diarrhea Genitourinary: denies: urgency, dysuria, discharge Musculoskeletal: denies: back pain, joint swelling, arthralgia Skin: denies: rash, lesions Neurological: denies: headache, weakness, paresthesias Psychiatric: denies: anxiety, depression Hematological/Lymphatic: denies: easy bleeding, easy bruising ED Past Medical Hx - Past Medical History Previous Medical History?: Yes Hx Congestive Heart Failure: No Hx Diabetes: No Hx Asthma: No Hx COPD: No Additional medical history: Hyperthyroidism. Pancreatitis - Surgical History Past Surgical History?: No - Family History Family history: no significant - Social History Smoking Status: Never Smoker Substance Use Type: Alcohol - Medications Home Medications: Home Medications Medication Instructions Recorded Confirmed Last Taken Type Elmore 500 mg PO BID 10/09/18 10/21/18 10/14/18 History Plaquenil 200 mg PO BID 10/09/18 10/21/18 09/29/18 History Wellbutrin 75 mg PO BID 10/09/18 10/21/18 10/14/18 History traZODone 100 mg PO HS 10/09/18 10/21/18 10/17/18 History Folic Acid [Folvite] 1 mg PO QDAY #30 tablet 10/13/18 10/21/18 10/21/18 Rx Multivitamin Tab [Multiple Vitamin 1 each PO QDAY #30 tablet 10/13/18 10/21/18 10/21/18 Rx TAB (Theragran)] Propranolol LA [Inderal LA] 60 mg PO QDAY #30 capsule 10/13/18 10/21/18 10/20/18 Rx ED Physical Exam - General Limitations: No Limitations General appearance: alert, in no apparent distress - Head Head exam: Present: atraumatic, normocephalic - Eye Eye exam: Present: normal appearance, PERRL Pupils: Present: normal accommodation - ENT ENT exam: Present: mucous membranes moist - Neck Neck exam: Present: normal inspection - Respiratory Respiratory exam: Present: normal lung sounds bilaterally. Absent: respiratory distress, wheezes, rales - Cardiovascular Cardiovascular Exam: Present: regular rate, normal rhythm. Absent: systolic murmur, diastolic murmur, rubs, gallop - GI/Abdominal GI/Abdominal exam: Present: soft, normal bowel sounds. Absent: distended, tenderness, guarding - Rectal Rectal exam: Present: deferred - Extremities Exam Extremities exam: Present: normal inspection, full ROM - Back Exam Back exam: Present: normal inspection, full ROM - Neurological Exam Neurological exam: Present: alert, oriented X3 - Psychiatric Psychiatric exam: Present: normal affect, normal mood - Skin Skin exam: Present: warm, dry, intact, normal color. Absent: rash ED Course Vital Signs 10/21/18 15:20 Temperature 98.3 F Pulse Rate 92 H Respiratory 16 Rate Blood Pressure 121/88 O2 Sat by Pulse 98 Oximetry - Reevaluation(s) Reevaluation #1: I went to discuss the results with the patient and the plan of care, and the patient has eloped from the hospital. Patient is nowhere to be found. 10/21/18 18:06 ED Medical Decision Making - Lab Data Result diagrams: 10/21/18 15:44 10/21/18 15:44 - Medical Decision Making Patient is a 43-year-old female Emergency room for acute intoxication and desiring rehabilitation. Patient had no physical complaints. Patient denied any type of head trauma. Patient eloped from the ER. Visit unable to be completed due to the fact the patient eloped from the ER. Patient's labs done essentially unremarkable except for elevated blood alcohol. The charge nurse informed and I instructed the charge nurse to call the local Police Department. - Differential Diagnosis acute intoxication. Alcohol addiction. Critical care attestation.: If time is entered above; I have spent that time in minutes in the direct care of this critically ill patient, excluding procedure time. ED Disposition Clinical Impression: Acute alcohol intoxication Qualifiers: Complication of substance-induced condition: uncomplicated Qualified Code(s): F10.920 - Alcohol use, unspecified with intoxication, uncomplicated EtOH dependence Qualifiers: Substance use status: uncomplicated Qualified Code(s): F10.20 - Alcohol dependence, uncomplicated Disposition: Z-07 ELOPED Is pt being admited?: No Does the pt Need Aspirin: No Condition: Undetermined Time of Disposition: 18:08
== END 2018-10-21 18:00 | disposition left against medical advice (07) ==
LOC: ED 15:10
DX: F10.920 Alcohol use, unspecified with intoxication, uncomplicated (principal); Z79.899 Other long term (current) drug therapy
CPT/HCPCS: 36415; 80053; 80307; 81001; 81025; 85025; 85610; 85730; 99283; J3411; J7030; 80320; G0480

== ENCOUNTER 2019-04-07 13:07 | Emergency (ER) | payer MEDICAID, MEDICARE ==
--- NOTE | 2019-04-07 14:01 | Event Note ---
ED Screening Note ED Screening Note: ETOH abuse, palpitations and possible SZ. wants detox. hx afib feels like heart irregular This initial assessment/diagnostic orders/clinical plan/treatment(s) is/are subject to change based on patients health status, clinical progression and re- assessment by fellow clinical providers in the ED. Further treatment and workup at subsequent clinical providers discretion. Patient/guardian urged not to elope from the ED as their condition may be serious if not clinically assessed and managed. Initial orders include: psych clearance trop MH assessment
--- NOTE | 2019-04-07 14:48 | XRay Report ---
CHEST 2 VIEWS INDICATION / CLINICAL INFORMATION: palpitations. COMPARISON: One view of the chest from 10/08/2018. FINDINGS: SUPPORT DEVICES: None. HEART / MEDIASTINUM: No significant abnormality. LUNGS / PLEURA: No significant pulmonary or pleural abnormality. No pneumothorax. ADDITIONAL FINDINGS: No significant additional findings. IMPRESSION: 1. No acute abnormality of the chest. Signer Name: Wilner Marquez MD Signed: 04/07/2019 2:44 PM Workstation Name: [id number]
[2019-04-07 14:55] LABS: Basophils % (Auto) 0.7 % (0.0-1.8); Eosinophils % (Auto) 0.7 % (0.0-4.3); Hematocrit 38.8 % (30.3-42.9); Hemoglobin 13.1 gm/dl (10.1-14.3); Lymphocytes # (Auto) 1.8 K/mm3 (1.2-5.4); Lymphocytes % (Auto) 34.2 % (13.4-35.0); Mean Corpuscular HGB Conc 34 % (30-34); Mean Corpuscular Volume 81 fl (79-97); Monocytes # (Auto) 0.4 K/mm3 (0.0-0.8); Monocytes % (Auto) 7.5 % (0.0-7.3); Platelet Count 176 K/mm3 (140-440); Red Cell Distribution Width 14.5 % (13.2-15.2)
[2019-04-07 15:05] LABS: INR 0.94 (0.87-1.13)
[2019-04-07 15:08] LABS: Partial Thromboplastin Time 26.9 Sec. (24.2-36.6)
[2019-04-07 15:20] LABS: Alanine Aminotransferase 28 units/L (7-56); Albumin 4.1 g/dL (3.9-5); BUN/Creatinine Ratio 12; Blood Urea Nitrogen 6 mg/dL (7-17); Calcium 9.1 mg/dL (8.4-10.2); Hemolysis Index 3
[2019-04-07 16:00] LABS: Bacteria,Urine 1+ /HPF (Negative); Bilirubin,Urine NEG (Negative); Blood,Urine LG (Negative); Color,Urine Straw (Yellow); Mucus,Urine FEW /HPF; Protein,Urine <15 mg/dL mg/dL (Negative); Urobilinogen,Urine < 2.0 mg/dL (<2.0)
[2019-04-07 16:06] LABS: Amphetamine Screen,Urine PRESUMPTIVE NEGATIVE; Benzodiazepines Screen,Urine PRESUMPTIVE NEGATIVE; Cannabinoid Screen,Urine PRESUMPTIVE NEGATIVE; Cocaine Screen,Urine PRESUMPTIVE NEGATIVE; Methadone Screen,Urine PRESUMPTIVE NEGATIVE; Opiate Screen,Urine PRESUMPTIVE NEGATIVE
[2019-04-07] MEDS ORDERED: LORazepam 2 MG/ML VIAL IM STA (16:13)
[2019-04-07] MEDS ORDERED: LORazepam 2 MG/ML VIAL ONE (16:15)
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
[2019-04-07] MEDS ORDERED: LORazepam 2 MG/ML VIAL IV PRN (20:57)
[2019-04-07] MEDS ORDERED: ONDANSETRON 4 MG/2 ML INJ IV ONE (20:57)
[2019-04-07] MEDS ORDERED: THIAMINE 100 MG, FOLIC ACID 1 MG, MULTIPLE VITAMIN INJ, ADULT 10 ML in SODIUM CHLORIDE ... IV ONE (21:00)
[2019-04-07] MEDS: LORazepam 2 MG/ML VIAL IV PRN (21:09)
[2019-04-08] MEDS: LORazepam 2 MG/ML VIAL IV PRN ×4 (05:23→20:52)
--- NOTE | 2019-04-08 10:06 | Emergency Department Report ---
Blank Doc - Documentation Documentation: I was asked by the psychiatric chair caner to evaluate this patient in regards to the patient being voluntary versus involuntary for psychiatric placement and alcohol detox. The patient presented to the emergency department yesterday with alcohol intoxication with a blood alcohol level of 0.25 but was also claiming visual hallucinations and suicidal ideations at that time. The patient was made a 1013 by one of the mid-level providers. This morning, the patient is awake, alert, oriented and is no longer intoxicated. The patient admits to some anxiety and depression regarding her current situation involving her Medicare insurance going inactive and the fact that she will be homeless. While she does not have any current suicidal ideations she says that they "come and go" as she thinks about her situation. Since I am unable to immediately fix these issues that are causing her such stress, I am unable to contract for safety. Therefore I will not resend the 1013 at this time and the patient will continue to be evaluated by the psychiatric team for placement or further disposition.
[2019-04-08 13:24] LABS: HCG Qualitative,Urine Negative (Negative)
[2019-04-09] MEDS: LORazepam 2 MG/ML VIAL IV PRN (10:12)
[2019-04-09] MEDS ORDERED: IBUPROFEN 800 MG TAB PO ONE (11:27)
[2019-04-09] MEDS ORDERED: IBUPROFEN 800 MG TAB ONE (11:59)
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
--- NOTE | 2019-04-09 14:17 | Event Note ---
Date: 04/09/19 Was asked to discharge the patient by the mental health import and export clerk but upon me reviewing the patient's chart normal had rescinded the 1013 in the patient has not had a psychiatric evaluation. At this time we will not be discharging this patient home. They will be awaiting psychiatric evaluation. I would not be resending the 1013
[2019-04-09 14:33] VITALS: BP 117/80
== END 2019-04-09 15:09 ==
LOC: ED 13:07
DX: F10.10 Alcohol abuse, uncomplicated (principal); R45.851 Suicidal ideations; J45.909 Unspecified asthma, uncomplicated; E03.9 Hypothyroidism, unspecified; Z98.890 Other specified postprocedural states; Z79.899 Other long term (current) drug therapy
CPT/HCPCS: 36415; 71046; 80053; 80307; 81001; 81025; 84484; 85025; 85610; 85730; 93005; 93010; 96365; 96372; 96375; 99285; J2060; J2405; J3411; J7030; 80320; G0480

== ENCOUNTER 2019-04-13 17:49 | Emergency (ER) | payer MEDICAID ==
--- NOTE | 2019-04-13 19:36 | Emergency Department Report ---
Blank Doc - Documentation Documentation: 43-year-old female that presents with right sided nasal swelling and purulent drainage. This initial assessment/diagnostic orders/clinical plan/treatment(s) is/are subject to change based on patient's health status, clinical progression and re- assessment by fellow clinical providers in the ED. Further treatment and workup at subsequent clinical providers discretion. Patient/guardians urged not to elope from the ED as their condition may be serious if not clinically assessed and managed. Initial orders include: 1- Patient sent to [facility] for further evaluation and treatment 2- exam shows possible abscess to right nostril 3- labs for possible CT
[2019-04-13 19:37] VITALS: BP 122/72
[2019-04-13 20:01] LABS: Hematocrit 34.1 % (30.3-42.9); Hemoglobin 11.4 gm/dl (10.1-14.3); Mean Corpuscular HGB Conc 33 % (30-34); Mean Corpuscular Volume 83 fl (79-97); Platelet Count 235 K/mm3 (140-440); Red Blood Count 4.13 M/mm3 (3.65-5.03); Red Cell Distribution Width 14.9 % (13.2-15.2)
[2019-04-13] MEDS ORDERED: ONDANSETRON 4 MG ODT TAB PO ONE (20:18)
[2019-04-13] MEDS ORDERED: CLINDAMYCIN 150 MG CAP PO ONE (20:18)
[2019-04-13] MEDS ORDERED: SULFAMETHOXAZOLE/TRIMETHOPRIM 800/160MG DS TAB PO ONE (20:18)
[2019-04-13] MEDS ORDERED: IBUPROFEN 600 MG TAB PO ONE (20:18)
[2019-04-13 20:19] LABS: BUN/Creatinine Ratio 15; Blood Urea Nitrogen 9 mg/dL (7-17); Calcium 9.6 mg/dL (8.4-10.2); Hemolysis Index 1
--- NOTE | 2019-04-13 20:28 | Emergency Department Report ---
ED General Adult HPI - General Chief complaint: Skin/Abscess/Foreign Body Stated complaint: BUMP ON NOSE/SWOLLEN EYE Time Seen by Provider: 04/13/19 19:34 Source: patient Mode of arrival: Ambulatory Limitations: No Limitations - History of Present Illness Initial comments: Patient is a 43-year-old -Congolese female with a history of lupus who presents to the ED with complaint of acute onset persistent severely painful swollen mildly erythematous maculopapular rash in the right nares with purulent discharge for the last 3 days. Patient denies dizziness, syncope, chest pain, shortness of breath, fever, chills, nausea, vomiting, headache, change in vision or epistaxis. Patient states that the rash initially started as a small papule but she ended up draining the papule herself and 2 days later the pain, swelling and purulent discharge worsened. MD Complaint: right nare swollen painful rash with purulent discharge -: Sudden, days(s) (3) Location: face Radiation: non-radiation Severity scale (0 -10): 5 Quality: aching, sharp Consistency: constant Improves with: none Worsens with: none Associated Symptoms: denies other symptoms, rash (Mildly erythematous swollen painful rash in right nare with purulent discharge). denies: confusion, chest pain, cough, diaphoresis, fever/chills, headaches, loss of appetite, malaise, nausea/vomiting, shortness of breath, syncope, weakness Treatments Prior to Arrival: none - Related Data Home Medications Medication Instructions Recorded Confirmed Last Taken Hydroxychloroquine [Plaquenil] 200 mg PO BID 10/26/18 10/26/18 Unknown [place] Carbonate 300 mg PO BID 10/26/18 10/26/18 Unknown Previous Rx's Medication Instructions Recorded Last Taken Type Propranolol LA [Inderal LA] 60 mg PO QDAY #30 capsule 10/13/18 10/20/18 Rx Acetaminophen [Acetaminophen TAB] 650 mg PO Q4H PRN #20 tablet 10/28/18 Unknown Rx Mirtazapine [Remeron 15mg TAB] 15 mg PO QHS #30 tablet 10/28/18 Unknown Rx Thiamine [Vitamin B-1] 100 mg PO QDAY #30 tablet 10/28/18 Unknown Rx busPIRone [Buspar] 7.5 mg PO BID 30 Days tablet 10/28/18 Unknown Rx methIMAzole [Tapazole] 2 tab PO TID 30 Days tablet 10/28/18 Unknown Rx oxyCODONE /ACETAMINOPHEN [Percocet 1 tab PO Q6H PRN #8 tablet 10/28/18 Unknown Rx 5/325 mg] Acetaminophen/Codeine [Tylenol 1 tab PO Q6H PRN #12 tab 11/20/18 Unknown Rx /Codeine # 3 tab] risperiDONE [RisperDAL] 0.5 mg PO BID #60 tablet 04/09/19 Unknown Rx traZODone [Desyrel] 100 mg PO QHS #30 tablet 04/09/19 Unknown Rx Clindamycin [Clindamycin CAP] 150 mg PO Q8HR #60 capsule 04/13/19 Unknown Rx Doxycycline Hyclate 100 mg PO Q12H #20 tablet. 04/13/19 Unknown Rx Ibuprofen [Motrin] 600 mg PO Q8H PRN #24 tablet 04/13/19 Unknown Rx Ondansetron [Zofran Odt] 4 mg PO Q6HR PRN #15 tab.rapdis 04/13/19 Unknown Rx Allergies Allergy/AdvReac Type Severity Reaction Status Date / Time No Known Allergies Allergy Unverified 10/08/18 18:49 ED Review of Systems ROS: Stated complaint: BUMP ON NOSE/SWOLLEN EYE Other details as noted in HPI Constitutional: denies: chills, fever Eyes: denies: eye pain, eye discharge, vision change ENT: other (Painful swollen mildly erythematous maculopapular rash on right nares ). denies: ear pain, throat pain Respiratory: denies: cough, shortness of breath, wheezing Cardiovascular: denies: chest pain, palpitations Endocrine: no symptoms reported Gastrointestinal: denies: abdominal pain, nausea, diarrhea Genitourinary: denies: urgency, dysuria, discharge Musculoskeletal: denies: back pain, joint swelling, arthralgia Skin: rash (Painful swollen mildly erythematous maculopapular rash on right nares ), change in color, other (Painful swollen mildly erythematous maculopapular rash on right nares ). denies: lesions Neurological: denies: headache, weakness, paresthesias Psychiatric: denies: anxiety, depression Hematological/Lymphatic: denies: easy bleeding, easy bruising ED Past Medical Hx - Past Medical History Hx Congestive Heart Failure: No Hx Diabetes: No Hx Asthma: Yes Hx COPD: No Additional medical history: Hyperthyroidism. Pancreatitis - Surgical History Additional Surgical History: heart - Social History Smoking Status: Never Smoker Substance Use Type: None - Medications Home Medications: Home Medications Medication Instructions Recorded Confirmed Last Taken Type Propranolol LA [Inderal LA] 60 mg PO QDAY #30 capsule 10/13/18 10/26/18 10/20/18 Rx Hydroxychloroquine [Plaquenil] 200 mg PO BID 10/26/18 10/26/18 Unknown History [place] Carbonate 300 mg PO BID 10/26/18 10/26/18 Unknown History Acetaminophen [Acetaminophen TAB] 650 mg PO Q4H PRN #20 tablet 10/28/18 Unknown Rx Mirtazapine [Remeron 15mg TAB] 15 mg PO QHS #30 tablet 10/28/18 Unknown Rx Thiamine [Vitamin B-1] 100 mg PO QDAY #30 tablet 10/28/18 Unknown Rx busPIRone [Buspar] 7.5 mg PO BID 30 Days tablet 10/28/18 Unknown Rx methIMAzole [Tapazole] 2 tab PO TID 30 Days tablet 10/28/18 Unknown Rx oxyCODONE /ACETAMINOPHEN [Percocet 1 tab PO Q6H PRN #8 tablet 10/28/18 Unknown Rx 5/325 mg] Acetaminophen/Codeine [Tylenol 1 tab PO Q6H PRN #12 tab 11/20/18 Unknown Rx /Codeine # 3 tab] risperiDONE [RisperDAL] 0.5 mg PO BID #60 tablet 04/09/19 Unknown Rx traZODone [Desyrel] 100 mg PO QHS #30 tablet 04/09/19 Unknown Rx Clindamycin [Clindamycin CAP] 150 mg PO Q8HR #60 capsule 04/13/19 Unknown Rx Doxycycline Hyclate 100 mg PO Q12H #20 tablet.dr 04/13/19 Unknown Rx Ibuprofen [Motrin] 600 mg PO Q8H PRN #24 tablet 04/13/19 Unknown Rx Ondansetron [Zofran Odt] 4 mg PO Q6HR PRN #15 tab.rapdis 04/13/19 Unknown Rx ED Physical Exam - General Limitations: No Limitations General appearance: alert, in no apparent distress - Head Head exam: Present: atraumatic, normocephalic, normal inspection - Eye Eye exam: Present: normal appearance, PERRL, EOMI Pupils: Present: normal accommodation - ENT ENT exam: Present: normal orophraynx, mucous membranes moist, TM's normal bilaterally, normal external ear exam, other (Palpable severely tender, swollen mildly erythematous maculopapular rash on right nares ) - Neck Neck exam: Present: normal inspection, full ROM - Respiratory Respiratory exam: Present: normal lung sounds bilaterally. Absent: respiratory distress, wheezes, rales, rhonchi, chest wall tenderness, accessory muscle use, decreased breath sounds - Cardiovascular Cardiovascular Exam: Present: regular rate, normal rhythm, normal heart sounds. Absent: systolic murmur, diastolic murmur, rubs, gallop - GI/Abdominal GI/Abdominal exam: Present: soft, normal bowel sounds. Absent: tenderness, guarding, hyperactive bowel sounds, hypoactive bowel sounds - Extremities Exam Extremities exam: Present: normal inspection, full ROM, normal capillary refill - Back Exam Back exam: Present: normal inspection, full ROM. Absent: tenderness, CVA tenderness (L), muscle spasm, paraspinal tenderness, vertebral tenderness - Neurological Exam Neurological exam: Present: alert, oriented X3, CN II-XII intact, normal gait, reflexes normal - Psychiatric Psychiatric exam: Present: normal affect, normal mood - Skin Skin exam: Present: warm, dry, intact, normal color, rash (Palpable severely tender, swollen mildly erythematous maculopapular rash on right nares ) ED Course Vital Signs 04/13/19 19:34 Temperature 99 F Pulse Rate 82 Respiratory 18 Rate Blood Pressure 122/72 O2 Sat by Pulse 99 Oximetry ED Medical Decision Making - Lab Data Result diagrams: 04/13/19 19:43 04/13/19 19:43 - Medical Decision Making This is a 43-year-old female who presented to the ED with persistent painful swelling mildly erythematous maculopapular rash with purulent discharge in the right nares for 3 days. In the ED, patient is alert and oriented x3 and is not in any distress. Patient was treated in the ED for pain and also given oral antibiotics. Lab test results were unremarkable. Patient was discharged home on pain medications and oral antibiotics and advised to follow-up with her primary care physician in 7 to 10 days for reevaluation or return to the ED immediately if her symptoms get worse. Patient agreed with the plan of care and promised to comply. - Differential Diagnosis facial cellulitis; Acute folliculitis; abscess Critical care attestation.: If time is entered above; I have spent that time in minutes in the direct care of this critically ill patient, excluding procedure time. ED Disposition Clinical Impression: Acute folliculitis, Cellulitis of face Disposition: TO HOME OR SELFCARE Is pt being admited?: No Does the pt Need Aspirin: No Condition: Stable Instructions: Folliculitis (ED), Cellulitis (ED) Additional Instructions: Take medications with food, drink plenty fluids and follow-up with your primary care physician in 7 to 10 days for reevaluation. Return to the ED immediately if symptoms get worse. Prescriptions: Clindamycin [Clindamycin CAP] 150 mg PO Q8HR #60 capsule Doxycycline Hyclate 100 mg PO Q12H #20 tablet. Ibuprofen [Motrin] 600 mg PO Q8H PRN #24 tablet PRN Reason: Pain Ondansetron [Zofran Odt] 4 mg PO Q6HR PRN #15 tab.rapdis PRN Reason: Nausea Referrals: [facility] [Outside] - 3-5 Days Time of Disposition: 20:43 Print Language: ICELANDIC
[2019-04-13 20:35] LABS: Basophils % (Manual) 0 % (0.0-1.8); Eosinophils % (Manual) 0 % (0.0-4.3); Total Cells Counted 100
[2019-04-13 20:36] LABS: RBC Morphology Normal
== END 2019-04-13 21:00 | disposition home or self-care (01) ==
LOC: ED 17:49
DX: L73.9 Follicular disorder, unspecified (principal); L03.211 Cellulitis of face; J45.909 Unspecified asthma, uncomplicated; E05.90 Thyrotoxicosis, unspecified without thyrotoxic crisis or storm
CPT/HCPCS: 36415; 80048; 84703; 85007; 85025; 99283; Q0162